=== PATIENT | male | born 1980 | race Caucasian/White ===

== ENCOUNTER 2021-01-20 20:17 | Emergency (ER) | payer OTHER, SELFPAY ==
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
--- NOTE | 2021-01-20 20:27 | ECG_ITS ---
Measurements Intervals [place] Rate: 85 P: 50 MD: 193 QRS: 23 QRSD: 110 T: 38 QT: 350 QTc: 416 Interpretive Statements SINUS RHYTHM DELAYED PRECORDIAL R/S TRANSITION CONSIDER INFERIOR INFARCT, AGE INDETERMINATE BASELINE ARTIFACT- II, AVR, AVL, AVF ABNORMAL ECG Electronically Signed On 01-20-2021 21:41:52 CDT by Raj Richards D.O.
[2021-01-20 20:30] VITALS: BP 168/94; PULSE 85; RESP 22; TEMP 36.8; O2SAT 100
[2021-01-20] MEDS: DEXTROSE 50% 25 GM/50 ML SYRINGE IV PUSH (20:32)
[2021-01-20] MEDS: SODIUM CHLORIDE 0.9% IV 1,000 ML 150 ML IV CONT (20:35)
[2021-01-20] MEDS: MORPHINE SULFATE (*CRX) 4 MG/ML INJ IV PUSH ×2 (20:36→21:52)
[2021-01-20 20:43] LABS: Glucose Point of Care 40 mg/dl (65-105)
[2021-01-20 20:48] LABS: Basophils Absolute Auto 0.1 K/mm3 (0.0-0.1); Basophils Percent Auto 0.7 % (0.2-1.2); Eosinophils Absolute Auto 0.4 K/mm3 (0-0.3); Hematocrit 38.7 % (42.0-52.0); Hemoglobin 12.5 g/dL (14.0-18.0); Immature Granulocyte Absolute 0.14 K/mm3 (0.00-0.031); Lymphocytes Absolute Auto 1.61 K/mm3 (0.9-3.2); Lymphocytes Percent Auto 11.2 % (18.3-44.2); Mean Corpuscular HGB Conc 32.3 g/dl (32-36); Mean Corpuscular Hemoglobin 28.2 pg (26-34); Mean Corpuscular Volume 87.2 fl (80-100); Mean Platelet Volume 9.1 fl (7.4-10.4); Monocytes Absolute Auto 1.1 K/mm3 (0.1-0.6); Monocytes Percent Auto 7.4 % (2.6-8.5); Neutrophils Percent Auto 76.7 % (45.5-73.1); Platelet Count Result 320 k/mm3 (150-375); Red Blood Count 4.44 M/mm3 (4.6-6.20); Red Cell Distribution Width 13.4 % (11.5-14.5); White Blood Count 14.4 K/mm3 (4.5-10.0)
[2021-01-20 21:05] VITALS: BP 168/94; PULSE 86; RESP 19; O2SAT 100
[2021-01-20 21:05] LABS: Alanine Aminotransferase 24 U/L (4-50); Alkaline Phosphatase 89 U/L (38-126); Anion Gap 10 mmol/L (8-16); Aspartate Amino Transferase 29 U/L (17-59); Bilirubin,Total 0.3 mg/dL (0.2-1.3); Blood Urea Nitrogen 39 mg/dL (9-20); Carbon Dioxide 24 mmol/L (22-30); Chloride 106 mmol/L (98-107); Estimated Glomerular Filt Rate 26; Glucose 47 mg/dL (75-110); Potassium 4.5 mmol/L (3.4-5.0); Sodium 140 mmol/L (137-145)
[2021-01-20 21:13] LABS: Glucose Point of Care 97 mg/dl (65-105)
[2021-01-20 21:31] VITALS: BP 166/95; PULSE 94; RESP 25; O2SAT 99
[2021-01-20 21:51] LABS: Glucose Point of Care 99 mg/dl (65-105)
[2021-01-20 21:55] VITALS: BP 168/95; PULSE 89; RESP 19; O2SAT 99
[2021-01-20 22:17] LABS: Add Urine Microscopic? YES; Appearance Urine Clear (Clear); Bilirubin Urine Negative (Negative); Blood Urine Negative (Negative); Color Urine Straw (Yellow); Glucose Urine UA Negative (Negative); Ketones Urine Negative (Negative); Leukocyte Esterase Ur Negative LEU/UL (Negative); Nitrate Urine Negative (Negative); Protein Urine 3+ mg/dL (Negative); RBC Urine 0-2 /hpf (0-2); Specific Grav Ur 1.008 (1.001-1.035); Urobilinogen Urine Negative mg/dL (<2.0); WBC Urine 0-3 /hpf
--- NOTE | 2021-01-20 23:32 | PC.NURSE ---
Assumed care of pt. at this time. Report from LISA Garcia
[2021-01-20] MEDS: HYDROmorphone HCL INJ (*CRX) 1 MG/ML SYR IV PUSH (23:33)
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
--- NOTE | 2021-01-20 23:56 | PC.NURSE ---
Blood Glu 113 at 23:57
[2021-01-20 23:58] VITALS: BP 180/90; PULSE 87; RESP 18; O2SAT 100
[2021-01-20 23:58] LABS: Glucose Point of Care 113 mg/dl (65-105)
[2021-01-21 00:10] VITALS: BP 153/88; PULSE 77; RESP 19; O2SAT 97
== END 2021-01-21 00:10 | disposition home or self-care (01) ==
PROVIDERS: Emergency Provider Family Medicine
DX: E11.649 Type 2 diabetes mellitus with hypoglycemia without coma (principal); M54.5 Low back pain; V47.5XXA Car driver injured in collision with fixed or stationary object in traffic accident, initial encounter
CPT/HCPCS: 36415; 70450; 71045; 74176; 80053; 81001; 82948; 85025; 93005; 96361; 96374; 96375; 96376; 99284; J1170; J2270; J7030

== ENCOUNTER 2021-11-05 04:04 | Emergency (ER) | payer OTHER, SELFPAY ==
[2021-11-05 04:18] LABS: Glucose Point of Care 194 mg/dl (65-105)
[2021-11-05 04:20] VITALS: BP 194/97; PULSE 89; RESP 18; TEMP 36.6; O2SAT 100
--- NOTE | 2021-11-05 04:30 | ED.GENADULT ---
HPI - General Adult General Chief complaint: Unspecified Stated complaint: Hypoglycemia Time Seen by Provider: 11/05/21 04:08 Source: patient, family, EMS, RN notes reviewed and old records reviewed Mode of arrival: EMS Limitations: no limitations History of Present Illness Onset (ago): hour(s) (2) Severity: mild Pain Consistency: other (pain-free) Relieving factors: medication Exacerbating factors: none Associated symptoms: denies other symptoms and other (pt was adamant in denying chest pain or SOB.) Treatments prior to arrival: other (see EMS records.) Related Data Home Medications Medication Instructions Recorded Confirmed glucagon [Baqsimi] 3 mg INTRANASAL USEASDIRECTD 11/05/21 11/05/21 insulin degludec [Tresiba 200 unit SUBCUT USEASDIRECTD 11/05/21 11/05/21 FlexTouch U-200] insulin lispro [Humalog KwikPen 200 unit SUBCUT USEASDIRECTD 11/05/21 11/05/21 Insulin] levothyroxine 125 mcg PO DAILY 11/05/21 11/05/21 liothyronine 5 mcg PO DAILY 11/05/21 11/05/21 lisinopril 40 mg PO DAILY 11/05/21 11/05/21 rosuvastatin 20 mg PO DAILY 11/05/21 11/05/21 Allergies Allergy/AdvReac Type Severity Reaction Status Date / Time No Known Allergies Allergy Verified 11/05/21 04:23 Review of Systems Review of Systems: All systems reviewed & are unremarkable except as noted in HPI and below PMFSH Past Medical History Medical History (Updated 11/05/21 @ 05:03 by Xochitl Albert MD) Hypoglycemia associated with diabetes Family History Family History Mother Patient's mother is in good health Father Patient's father is in good health Sibling Patient's sister is in good health Other Diabetes mellitus Family history of attention deficit hyperactivity disorder (ADHD) Family history of malignant neoplasm of thyroid Family history of thyroid disease Hypertension Social History Social History Smoking status: Never smoker Exam Const: General: cooperative, healthy appearing, no acute distress and well developed Nutritional Appearance: obese Orientation/consciousness: patient oriented x3 Limitations: no limitations HENMT: Head: normal to inspection, normocephalic and atraumatic Ears: hearing grossly normal bilaterally, external ears normal and EAC's normal General nose exam: Normal external nose present and Normal nares present Face and sinus: normal facial exam Mouth: Yes oropharynx normal and Yes moist mucous membranes Throat: posterior oropharynx normal Eyes: General: appearance normal, both eyes and all related structures Visual Bauman: normal visual bauman by confrontation Periorbital: periorbital findings normal Eyelids: eyelids normal Conjunctivae: conjunctivae normal Sclera: sclerae normal Cornea: corneas normal Pupils: Equal, round and reactive pupils present EOM: EOMs intact bilaterally Neck: Neck: normal visual inspection, full ROM, no lymphadenopathy and no meningeal signs Chest: Chest palpation & inspection: normal inspection of the chest Resp: Effort & Inspection: normal respiratory effort and able to speak in complete sentences Auscultation: clear to auscultation bilaterally Cardio: Jugular venous distension: no JVD Rate: regular rate Rhythm: regular rhythm Peripheral pulses: Peripheral pulses 2+ throughout GI: Inspection: normal to inspection GI Palp: No abdominal tenderness Auscultation: normal bowel sounds Back/Spine/Pelvis: Back: no CVA tenderness Thoracic/Lumbar Spine: thoracic and lumbar spine normal to inspection and thoraco-lumbar ROM normal Skin: General skin exam: normal color and no rashes or lesions noted Rashes: no rashes Neuro: General: patient oriented x3, gait normal, tone normal, moves all extremities, no meningeal signs, no focal motor deficits and CN's II-XI intact bilaterally Cranial nerves: Yes CN's II-XII intact bilaterally, Yes Facial sensation i
[2021-11-05 04:53] LABS: Basophils Absolute Auto 0.07 K/mm3 (0.00-0.10); Basophils Percent Auto 0.4 % (0.0-1.0); Eosinophils Percent Auto 1.8 % (1.0-6.0); Hematocrit 37.3 % (40.0-54.0); Hemoglobin 11.9 g/dL (14.0-18.0); Immature Granulocyte Absolute 0.11 K/mm3 (0.00-0.00); Immature Granulocyte Percent A 0.7 % (0.0-0.0); Lymphocytes Absolute Auto 0.98 K/mm3 (1.10-4.50); Mean Corpuscular HGB Conc 31.9 g/dL (32.0-36.0); Mean Corpuscular Hemoglobin 28.4 pg (27.0-31.0); Mean Platelet Volume 8.9 fl (8.7-11.0); Monocytes Absolute Auto 0.94 K/mm3 (0.10-0.90); Monocytes Percent Auto 5.8 % (2.0-11.0); Neutrophils Absolute Auto 13.9 K/mm3 (1.7-7.2); Neutrophils Percent Auto 85.3 % (50.0-70.0); Platelet Count Result 297 K/mm3 (150-420); Red Blood Count 4.19 M/mm3 (4.70-6.10); Red Cell Distribution Width 13.1 % (11.6-14.4); White Blood Count 16.3 K/mm3 (4.8-10.8)
[2021-11-05 05:08] LABS: Alanine Aminotransferase 23 U/L (16-63); Albumin Level 3.4 g/dL (3.4-5.0); Alkaline Phosphatase 86 U/L (46-116); Anion Gap 8 mmol/L (8-16); Aspartate Amino Transferase 13 U/L (15-37); Bilirubin,Total 0.3 mg/dL (0.00-1.00); Blood Urea Nitrogen 44 mg/dL (7-18); Calcium 8.6 mg/dL (8.5-10.1); Carbon Dioxide 26 mmol/L (21-32); Chloride 104 mmol/L (98-108); Estimated Glomerular Filt Rate 27; Glucose 265 mg/dL (70-99); Osmolality Calculated 306 mOsm/kg (285-295); Potassium 4.7 mmol/L (3.5-5.1); Sodium 138 mmol/L (136-145); Total Protein 7.2 g/dL (6.4-8.2)
== END 2021-11-05 05:09 | disposition home or self-care (01) ==
PROVIDERS: Emergency Provider Emergency Medicine
DX: E11.649 Type 2 diabetes mellitus with hypoglycemia without coma (principal)
CPT/HCPCS: 36415; 80053; 82948; 85025; 99283

== ENCOUNTER 2022-03-07 13:54 | Outpatient (CLI) | payer OTHER, SELFPAY ==
[2022-03-07 14:55] LABS: Anion Gap 10 mmol/L (8-16); Blood Urea Nitrogen 65 mg/dL (7-18); Calcium 8.8 mg/dL (8.5-10.1); Carbon Dioxide 24 mmol/L (21-32); Chloride 103 mmol/L (98-108); Estimated Glomerular Filt Rate 21; Osmolality Calculated 299 mOsm/kg (285-295); Potassium 5.5 mmol/L (3.5-5.1); Sodium 137 mmol/L (136-145)
[2022-03-07 15:01] LABS: Glucose 49 mg/dL (70-99)
== END 2022-03-07 13:55 | disposition home or self-care (01) ==
LOC: CHSLAB 14:01
PROVIDERS: PCP Physician Assistant; Visit Provider Family Medicine
DX: E87.5 Hyperkalemia (principal)
CPT/HCPCS: 36415; 80048

== ENCOUNTER 2022-03-10 11:19 | Outpatient (CLI) | payer OTHER, SELFPAY ==
[2022-03-10 12:02] LABS: Anion Gap 10 mmol/L (8-16); Blood Urea Nitrogen 62 mg/dL (7-18); Calcium 8.8 mg/dL (8.5-10.1); Carbon Dioxide 23 mmol/L (21-32); Chloride 105 mmol/L (98-108); Estimated Glomerular Filt Rate 23; Glucose 91 mg/dL (70-99); Osmolality Calculated 303 mOsm/kg (285-295); Potassium 5.8 mmol/L (3.5-5.1); Sodium 138 mmol/L (136-145)
== END 2022-03-10 11:20 | disposition home or self-care (01) ==
LOC: CHSLAB 11:25
PROVIDERS: PCP Physician Assistant; Visit Provider Physician Assistant
DX: E87.5 Hyperkalemia (principal)
CPT/HCPCS: 36415; 80048

== ENCOUNTER 2022-03-15 12:05 | Outpatient (CLI) | payer OTHER, SELFPAY ==
[2022-03-15 12:36] LABS: Anion Gap 9 mmol/L (8-16); Blood Urea Nitrogen 54 mg/dL (7-18); Calcium 8.8 mg/dL (8.5-10.1); Carbon Dioxide 24 mmol/L (21-32); Chloride 103 mmol/L (98-108); Estimated Glomerular Filt Rate 26; Glucose 109 mg/dL (70-99); Osmolality Calculated 297 mOsm/kg (285-295); Potassium 5.5 mmol/L (3.5-5.1); Sodium 136 mmol/L (136-145)
== END 2022-03-15 12:06 | disposition home or self-care (01) ==
LOC: CHSLAB 12:08
PROVIDERS: PCP Physician Assistant; Visit Provider Family Medicine
DX: E87.5 Hyperkalemia (principal)
CPT/HCPCS: 36415; 80048

== ENCOUNTER 2022-04-07 12:54 | Outpatient (CLI) | payer OTHER, SELFPAY ==
[2022-04-07 13:43] LABS: Albumin Level 3.6 g/dL (3.4-5.0); Anion Gap 10 mmol/L (8-16); Blood Urea Nitrogen 40 mg/dL (7-18); Calcium 9.2 mg/dL (8.5-10.1); Carbon Dioxide 25 mmol/L (21-32); Chloride 104 mmol/L (98-108); Estimated Glomerular Filt Rate 26; Free T3 2.43 pg/mL (2.18-3.98); Free T4 Free Thyroxine 1.06 ng/dL (0.76-1.46); Glucose 83 mg/dL (70-99); Osmolality Calculated 296 mOsm/kg (285-295); Phosphorus 4.3 mg/dL (2.6-4.7); Sodium 139 mmol/L (136-145); Thyroid Stimulating Hormone 2.38 uIU/mL (0.36-3.74)
== END 2022-04-07 12:55 | disposition home or self-care (01) ==
LOC: CHSLAB 12:56
PROVIDERS: Internal Medicine Nephrology; PCP Physician Assistant; Visit Provider Nurse Practitioner
DX: E03.9 Hypothyroidism, unspecified (principal); N18.4 Chronic kidney disease, stage 4 (severe)
CPT/HCPCS: 36415; 80069; 84439; 84443; 84481

== ENCOUNTER 2022-09-02 13:15 | Outpatient (CLI) | payer BC, SELFPAY ==
[2022-09-02 13:49] LABS: Creatinine Urine 52.71 mg/dL (40-278)
[2022-09-02 13:51] LABS: MALB Creatinine Ratio 758.8 mg/g (0-30); Microalbumin Urine Random > 400.0 mg/L
[2022-09-02 14:23] LABS: Alanine Aminotransferase 24 U/L (16-63); Albumin Level 3.1 g/dL (3.4-5.0); Alkaline Phosphatase 102 U/L (46-116); Anion Gap 6 mmol/L (8-16); Aspartate Amino Transferase 17 U/L (15-37); Bilirubin,Total 0.3 mg/dL (0.00-1.00); Blood Urea Nitrogen 38 mg/dL (7-18); Calcium 8.5 mg/dL (8.5-10.1); Carbon Dioxide 30 mmol/L (21-32); Chloride 106 mmol/L (98-108); Cholesterol 169 mg/dL (0-200); Estimated Glomerular Filt Rate 24; Free T3 2.44 pg/mL (2.18-3.98); Free T4 Free Thyroxine 1.02 ng/dL (0.76-1.46); Glucose 113 mg/dL (70-99); HDL Direct 41 mg/dL (40-60); LDL Cholesterol Calculated 92 mg/dL (<130); Osmolality Calculated 304 mOsm/kg (285-295); Potassium 5.1 mmol/L (3.5-5.1); Sodium 142 mmol/L (136-145); Thyroid Stimulating Hormone 2.61 uIU/mL (0.36-3.74); Total Protein 6.5 g/dL (6.4-8.2); Triglycerides 178 mg/dL (0-150)
== END 2022-09-02 13:16 | disposition home or self-care (01) ==
LOC: CHSLAB 13:18
PROVIDERS: PCP Internal Medicine Endocrinology, Diabetes & Metabolism; Visit Provider Internal Medicine Endocrinology, Diabetes & Metabolism
DX: E10.9 Type 1 diabetes mellitus without complications (principal); E03.9 Hypothyroidism, unspecified; E78.5 Hyperlipidemia, unspecified
CPT/HCPCS: 36415; 80053; 80061; 82043; 83036; 84439; 84443; 84481

== ENCOUNTER 2022-10-10 19:18 | Emergency (ER) | payer BC, SELFPAY ==
[2022-10-10 19:20] VITALS: BP 172/81; PULSE 84; RESP 20; TEMP 37.2; O2SAT 99
[2022-10-10] MEDS: DEXTROSE 50% 25 GM/50 ML SYRINGE IV PUSH (19:22)
--- NOTE | 2022-10-10 19:38 | ED.GENADULT ---
HPI - General Adult General Chief complaint: Unspecified Stated complaint: Low Blood Sugar Time Seen by Provider: 10/10/22 19:37 Source: patient Mode of arrival: ambulatory Limitations: no limitations History of Present Illness HPI narrative: 42-year-old male with a history of diabetes mellitus, dyslipidemia, hypothyroidism, hypertension, CARLOS MANUEL, CKD stage 4 with secondary hyperparathyroidism was noted to have -- Dizziness and lightheadedness.Blood sugar in the 40s On his continuous blood glucose monitoring machine. The patient takes Tresiba and lists pro with meals. -- The patient called EMS following which he received 75 mL of D10 with increase of blood sugar 90. When he presented to the ER he noted his blood sugar to be in the 70s. No loss of consciousness. the patient was scheduled to have dinner but was unable to do so . Onset (ago): hour(s) ( 1 hour ago) Severity: mild Exacerbating factors: none Associated symptoms: weakness Related Data Home Medications Medication Instructions Recorded Confirmed insulin degludec 200 unit/mL (3 24 unit subcut USEASDIRECTD 11/05/21 10/10/22 mL) subcutaneous pen (Tresiba FlexTouch U-200 insulin) insulin lispro 200 unit/mL (3 mL) 200 unit subcut USEASDIRECTD 11/05/21 10/10/22 subcutaneous pen (Humalog KwikPen U-200 Insulin) levothyroxine 150 mcg tablet 150 mcg PO DAILY 09/27/22 10/10/22 (Unithroid) diltiazem HCl 180 mg 180 mg PO BID 10/10/22 10/10/22 capsule,extended release 24 hr Allergies Allergy/AdvReac Type Severity Reaction Status Date / Time No Known Allergies Allergy Verified 09/27/22 15:16 Review of Systems Review of Systems: All systems reviewed & are unremarkable except as noted in HPI and below Constitutional: Constitutional: Reports as per HPI, Reports no additional constitutional complaints and Reports weakness Eyes: Eyes: Reports as per HPI and Reports no additional eye complaints ENT: Reports system reviewed and no additional complaints, except as documented and Reports as per HPI Cardiovascular: Cardiovascular: Reports as per HPI and Reports no additional cardiovascular complaints Respiratory: Respiratory: Reports as per HPI and Reports no additional respiratory complaints Gastrointestinal: Gastrointestinal: Reports as per HPI and Reports no additional gastrointestinal complaints Genitourinary: Genitourinary: Reports no additional male genitourinary complaints and Reports as per HPI Musculoskeletal: Musculoskeletal: Reports no additional musculoskeletal complaints and Reports as per HPI Integumentary/Breasts: Skin/Breast: Reports system reviewed and no additional complaints, except as docu and Reports as per HPI Neurologic: Reports system reviewed and no additional complaints, except as documented and Reports as per HPI Psychiatric: Psychiatric: Reports no additional psychiatric complaints and Reports as per HPI Endocrine: Endocrine: Reports palpitations Hematologic/Lymphatic: Hematologic/Lymphatic: Reports no additional hematologic/lymphatic complaints and Reports as per HPI Allergic/Immunologic: Allergic/Immunologic: Reports no additional allergic/immunologic complaints and Reports as per HPI PMFSH Past Medical History Medical History CKD (chronic kidney disease) Diabetes Diabetic retinopathy Dysthymic disorder Hyperlipidemia Hypertension Hypoglycemia associated with diabetes Hypothyroidism CARLOS MANUEL (obstructive sleep apnea) Family History Family History Mother Patient's mother is in good health Father Patient's father is in good health Sibling Patient's sister is in good health Other Diabetes mellitus Family history of attention deficit hyperactivity disorder (ADHD) Family history of malignant neoplasm of thyroid Family history of thyroid disease Hypertension Social History Social History (Revie
--- NOTE | 2022-10-10 19:44 | PC.NURSE ---
Pt sitting bedside, food tray given. Pt watching TV, call walker at side.
[2022-10-10 20:12] LABS: Basophils Absolute Auto 0.07 K/mm3 (0.00-0.10); Basophils Percent Auto 0.6 % (0.0-1.0); Eosinophils Percent Auto 2.8 % (1.0-6.0); Hemoglobin 12.9 g/dL (14.0-18.0); Immature Granulocyte Absolute 0.06 K/mm3 (0.00-0.00); Immature Granulocyte Percent A 0.6 % (0.0-0.0); Lymphocytes Absolute Auto 1.25 K/mm3 (1.10-4.50); Lymphocytes Percent Auto 11.6 % (18.0-42.0); Mean Corpuscular HGB Conc 33.1 g/dL (32.0-36.0); Mean Corpuscular Volume 84.8 fL (78.0-102.0); Monocytes Absolute Auto 0.81 K/mm3 (0.10-0.90); Monocytes Percent Auto 7.5 % (2.0-11.0); Neutrophils Absolute Auto 8.3 K/mm3 (1.7-7.2); Neutrophils Percent Auto 76.9 % (50.0-70.0); Platelet Count Result 292 K/mm3 (150-420); Red Cell Distribution Width 13.2 % (11.6-14.4); White Blood Count 10.8 K/mm3 (4.8-10.8)
[2022-10-10 20:23] LABS: Glucose Point of Care 155 mg/dl (65-105)
[2022-10-10 20:29] LABS: Alanine Aminotransferase 10 U/L (16-63); Albumin Level 3.1 g/dL (3.4-5.0); Alkaline Phosphatase 90 U/L (46-116); Anion Gap 8 mmol/L (8-16); Aspartate Amino Transferase 17 U/L (15-37); Bilirubin,Total 0.2 mg/dL (0.00-1.00); Blood Urea Nitrogen 48 mg/dL (7-18); Calcium 8.5 mg/dL (8.5-10.1); Carbon Dioxide 27 mmol/L (21-32); Chloride 104 mmol/L (98-108); Estimated CRCL calculation 49 ml/min; Estimated Glomerular Filt Rate 23; Glucose 149 mg/dL (70-99); Osmolality Calculated 303 mOsm/kg (285-295); Potassium 4.5 mmol/L (3.5-5.1); Sodium 139 mmol/L (136-145); Troponin I 5.4 ng/L (0.00-60.4)
--- NOTE | 2022-10-10 21:20 | PC.NURSE ---
Pt ate 100% of dsinner given, dexcom readings are 190, feeling better, VSS.
[2022-10-10 21:27] VITALS: BP 168/76; RESP 18; O2SAT 98
[2022-10-10 21:35] VITALS: BP 165/81; PULSE 89; RESP 20; TEMP 36.6; O2SAT 100
== END 2022-10-10 21:41 | disposition home or self-care (01) ==
PROVIDERS: Emergency Provider Internal Medicine Critical Care Medicine; PCP Physician Assistant
DX: I12.9 Hypertensive chronic kidney disease with stage 1 through stage 4 chronic kidney disease, or unspecified chronic kidney disease (principal); N18.4 Chronic kidney disease, stage 4 (severe); E11.649 Type 2 diabetes mellitus with hypoglycemia without coma; E11.22 Type 2 diabetes mellitus with diabetic chronic kidney disease; E03.9 Hypothyroidism, unspecified; E78.5 Hyperlipidemia, unspecified; Z79.4 Long term (current) use of insulin
CPT/HCPCS: 36415; 80053; 82948; 84484; 85025; 96374; 99283; 99284

== ENCOUNTER 2023-01-23 15:49 | Outpatient (CLI) | payer BC, SELFPAY ==
[2023-01-23 16:31] LABS: Creatinine Urine 78.24 mg/dL (40-278)
[2023-01-23 16:33] LABS: Total Protein Urine Random > 250.0 mg/dL (0.0-11.9)
[2023-01-23 16:37] LABS: Albumin Level 3.2 g/dL (3.4-5.0); Anion Gap 11 mmol/L (8-16); Blood Urea Nitrogen 43 mg/dL (7-18); Calcium 8.6 mg/dL (8.5-10.1); Carbon Dioxide 25 mmol/L (21-32); Chloride 103 mmol/L (98-108); Estimated Glomerular Filt Rate 20; Glucose 155 mg/dL (70-99); Osmolality Calculated 301 mOsm/kg (285-295); Phosphorus 4.6 mg/dL (2.6-4.7); Potassium 4.9 mmol/L (3.5-5.1); Sodium 139 mmol/L (136-145)
[2023-01-25 19:16] LABS: Parathyroid Intact 314 pg/mL (14-64)
[2023-01-25 21:33] LABS: Vitamin D 25 Hydroxy 13 ng/mL (30-100)
== END 2023-01-23 15:50 | disposition home or self-care (01) ==
LOC: CHSLAB 15:51
PROVIDERS: PCP Physician Assistant; Visit Provider Internal Medicine Nephrology
DX: E11.22 Type 2 diabetes mellitus with diabetic chronic kidney disease (principal); E55.9 Vitamin D deficiency, unspecified; I12.9 Hypertensive chronic kidney disease with stage 1 through stage 4 chronic kidney disease, or unspecified chronic kidney disease; N25.81 Secondary hyperparathyroidism of renal origin; R80.9 Proteinuria, unspecified; N18.4 Chronic kidney disease, stage 4 (severe)
CPT/HCPCS: 36415; 80069; 82306; 82570; 83970; 84156

== ENCOUNTER 2024-02-09 12:27 | Outpatient (CLI) | payer BC, SELFPAY ==
[2024-02-09 12:57] LABS: Creatinine Urine 41.52 mg/dL (40-278)
[2024-02-09 13:13] LABS: Total Protein Urine Random > 250.0 mg/dL (0.0-11.9); Ur Ttl Prot Creatinine Ratio 6.02 mg/mg (0-0.20)
[2024-02-09 13:31] LABS: Albumin Level 3.3 g/dL (3.4-5.0); Anion Gap 13 mmol/L (4-12); Blood Urea Nitrogen 72 mg/dL (7-18); Calcium 8.2 mg/dL (8.5-10.1); Carbon Dioxide 23 mmol/L (21-32); Chloride 100 mmol/L (98-108); Estimated Glomerular Filt Rate 11; Glucose 126 mg/dL (70-99); Osmolality Calculated 305 mOsm/kg (285-295); Phosphorus 5.6 mg/dL (2.6-4.7); Potassium 4.6 mmol/L (3.5-5.1); Sodium 136 mmol/L (136-145)
[2024-02-10 13:09] LABS: Parathyroid Intact 539 pg/mL (16-77)
== END 2024-02-09 12:28 | disposition home or self-care (01) ==
LOC: CHSLAB 12:29
PROVIDERS: PCP Physician Assistant; Visit Provider Internal Medicine Nephrology
DX: E11.22 Type 2 diabetes mellitus with diabetic chronic kidney disease (principal); I12.9 Hypertensive chronic kidney disease with stage 1 through stage 4 chronic kidney disease, or unspecified chronic kidney disease; N18.4 Chronic kidney disease, stage 4 (severe); N25.81 Secondary hyperparathyroidism of renal origin; R25.2 Cramp and spasm; R80.9 Proteinuria, unspecified
CPT/HCPCS: 36415; 80069; 82570; 83735; 83970; 84156

== ENCOUNTER 2024-07-05 15:03 | Outpatient (CLI) | payer BC, SELFPAY ==
[2024-07-05 15:32] LABS: Creatinine Urine 62.36 mg/dL (40-278)
[2024-07-05 15:36] LABS: Total Protein Urine Random > 250.0 mg/dL (0.0-11.9); Ur Ttl Prot Creatinine Ratio 4.01 mg/mg (0-0.20)
[2024-07-05 15:57] LABS: Albumin Level 3.2 g/dL (3.4-5.0); Anion Gap 16 mmol/L (4-12); Blood Urea Nitrogen 99 mg/dL (7-18); Calcium 6.6 mg/dL (8.5-10.1); Carbon Dioxide 21 mmol/L (21-32); Chloride 101 mmol/L (98-108); Estimated Glomerular Filt Rate 7; Glucose 134 mg/dL (70-99); Osmolality Calculated 318 mOsm/kg (285-295); Potassium 4.7 mmol/L (3.5-5.1); Sodium 138 mmol/L (136-145)
[2024-07-06 13:47] LABS: Parathyroid Intact 892 pg/mL (16-77)
== END 2024-07-05 15:04 | disposition home or self-care (01) ==
PROVIDERS: PCP Physician Assistant; Visit Provider Internal Medicine Nephrology
DX: E11.22 Type 2 diabetes mellitus with diabetic chronic kidney disease (principal); I12.9 Hypertensive chronic kidney disease with stage 1 through stage 4 chronic kidney disease, or unspecified chronic kidney disease; N18.5 Chronic kidney disease, stage 5; R80.9 Proteinuria, unspecified; N18.4 Chronic kidney disease, stage 4 (severe); N25.81 Secondary hyperparathyroidism of renal origin; E55.9 Vitamin D deficiency, unspecified
CPT/HCPCS: 36415; 80069; 82306; 82570; 83970; 84156

== ENCOUNTER 2024-08-07 14:33 | Outpatient (CLI) | payer OTHER, SELFPAY ==
[2024-08-08 07:53] LABS: Hepatitis B Surface Antibody NON-REACTIVE (NON-REACTIVE)
[2024-08-09 03:09] LABS: Hepatitis B Core Ab Total NON-REACTIVE (NON-REACTIVE)
[2024-08-10 13:49] LABS: NIL 0.01 IU/mL; Quantiferon TB Plus, 1T NEGATIVE (NEGATIVE); TB1-NIL 0.02 IU/mL; TB2-NIL 0.01 IU/mL
== END 2024-08-07 14:34 | disposition home or self-care (01) ==
LOC: CHSLAB 14:34
PROVIDERS: PCP Physician Assistant; Visit Provider Internal Medicine Nephrology
DX: R06.00 Dyspnea, unspecified (principal); N18.6 End stage renal disease; R79.89 Other specified abnormal findings of blood chemistry; R11.2 Nausea with vomiting, unspecified; R10.11 Right upper quadrant pain; R74.8 Abnormal levels of other serum enzymes; R17 Unspecified jaundice; R05.9 Cough, unspecified; R06.02 Shortness of breath; Z11.1 Encounter for screening for respiratory tuberculosis
CPT/HCPCS: 36415; 86480; 86704; 86706; 87340

== ENCOUNTER 2025-01-08 14:52 | Outpatient (CLI) | payer OTHER, SELFPAY ==
--- NOTE | ~2025-01-08 | XR_ITS ---
XR abdomen/kub 1V 01/08/2025 15:08 Indication: Abdominal pain. Procedure: KUB Comparison: No prior studies for comparison. Findings: Bowel gas pattern nonobstructive. There is a catheter overlying the left pelvis which is on ly partially visualized, possibly fractured. No abnormal calcifications. Impression: 1: No acute abdominal abnormality. 2: Partially visualized catheter left pelvis, possibly fractured. Reviewed, dictated and finalized at location [] Impression: 1: No acute abdominal abnormality. 2: Partially visualized catheter left pelvis, possibly fractured.
--- OUTSIDE RECORDS SUMMARY | 2025-01-08 17:26 | XMS_ITS | Referral Summary ---
Author Organization [facility] Address [address] [place] [address] Care Team Providers Care Merry Go Round Operator Name Role Phone Julius Harper MD Primary Care Provider [phone] Grace Delgado MD Unavailable [phone] Allergies No known active allergies Medications glucagon (glucagon) 1 mg kit Take as directed 2 kit 3 7 Active terazosin (HYTRIN) 2 mg capsule Take 2 mg by mouth daily. 4 7 Active DILTIAZEM CD 240 mg 24 hr capsule Take 240 mg by mouth 2 (two) times a day. 4 7 Active furosemide (LASIX) 20 mg tablet Take 1 tablet by mouth daily. 8 Active blood-glucose sensor device Use 1 Dexcom G5 sensor device weekly 12 Device 1 8 Active alcohol swabs (ALCOHOL WIPES) pads, medicated Apply 1 each topically 4 (four) times a day 200 each 9 Active blood glucose diagnostic strip Test blood suagrs four times every day 150 each 9 Active lancets misc Test blood sugars four times every day 200 each 9 Active levothyroxine (SYNTHROID, LEVOTHROID) 125 mcg tabletIndications: Hypothyroidism, unspecified type Take 1 tablet (125 mcg total) by mouth daily 90 tablet 1 9 Active lisinopril (PRINIVIL,ZESTRIL) 40 mg tablet Take 1 tablet (40 mg total) by mouth daily 90 tablet 1 9 Active pen needle, diabetic (PEN NEEDLE) 31 gauge x 5/16 needle Use to inject 4 times daily as directed 400 each 3 9 Active liothyronine (Cytomel) 5 mcg tablet Take 1 tablet (5 mcg total) by mouth 2 (two) times a day 60 tablet 11 0 Active rosuvastatin (CRESTOR) 20 mg tablet Take 1 tablet (20 mg total) by mouth daily 30 tablet 11 0 Active HumaLOG KwikPen Insulin 100 unit/mL insulin penIndications:Typ e 1 diabetes mellitus with hyperglycemia (HCC) Inject 15-30 Units under the skin 3 (three) times a day before meals Max 90 units per day 30 pen 1 0 Active Basaglar KwikPen U-100 Insulin 100 unit/mL (3 mL) insulin pen Inject 32 Units under the skin daily 30 mL 0 Active Active Problems Problem Noted Date Diagnosed Date CKD (chronic kidney disease) stage 3, GFR 30-59 ml/min 09/18/2019 BMI 40.0-44.9, adult 09/17/2019 Mixed diabetic hyperlipidemi a associated with type 1 diabetes mellitus 03/26/2019 Assessment & Plan (09/17/2019 12:59 PM DIRECTOR PROFESSIONAL SERVICES): Due to the high risk of of heart attacks and strokes in patients with diabetes, it is stronglyce recommended to aim for LDL-cholesterol ( bad cholesterol ) of less than 100 ( or less than 70 if you have a history of stroke or heart disease ) and a non HDL cholesterol of less than 130 . Since statin medications have shown to decrease the risk of heart disease and strokes in patients with diabetes , its use is strongly recommended. Assessment & Plan (03/26/2019 4:10 PM CDT): Goal of treatment , LDL cholesterol less than 100 ( less than 70 in patients with history of heart attacks and / or strokes ) NonHDL cholesterol ( total cholesterol minus HDL cholesterol ) goal less than 130 ( less than 100 in patients with history of heart attacks and / or strokes ) Low cholesterol, low fat diet was discussed and advised. Daily exercise Will check lipid profile and start a statin therapy is indicated Postoperative hypothyroidism 10/04/2018 Assessment & Plan (09/17/2019 12:58 PM DIRECTOR PROFESSIONAL SERVICES): Will check TSH and free T4 Will adjust dose of Levothyroxine accordingly . If there is a need to make changes, will recheck levels in 2-3 months. Instructions to patient on taking medication properly : in the morning, on an empty stomach , 1 h part from food and/or other meds. Consider adding Cytomel Assessment & Plan (03/26/2019 4:06 PM CDT): Will check TSH and free T4 Will adjust dose of Levothyroxine accordingly . If there is a need to make changes, will recheck levels in 2-3 months. Instructions to patient on taking medication properly : in the morning, on an empty stomach , 1 h part from food and/or other meds. If any doses are missed, can take 2-3 tab together ,to make up for the missed dose; make sure at the end to the week, 7 tabs have been taken. Assessment & Plan (10/08/2018 11:05 AM CDT): Will check TFT's. Doubt that lack of wt loss is largely d/t thyroid medication. Type 1 diabetes mellitus with hyperglycemia 10/30 Assessment & Plan (09/17/2019 1:01 PM DIRECTOR PROFESSIONAL SERVICES): Your Hba1c today was: Lab Results Component Value Date HGBA1C 10.4 09/17/2019 meaning a 3 month average sugar of : 260 Your goal hba1c is under 7.0 to prevent termite exterminator diabetes complications ( eye , kidney and nerve damage ) . Your goal sugars are in the 90-130 range Exercise recommendations: It is recommended that you do daily aerobic ( walking, riding a bike, swimming ) and resistance exercises ( light weight lifting, resistance band stretching ) for at least 30 minutes , most days of the week. If you can not walk, chair exercises for 10-15 min a day would help tremendously. As little as 15-20 minutes exercise , in one or two sessions a day, is still very helpful to improve your diabetes control . Diet recommendations: Eat small portion meals, trying not to consume more than 1800 calories a day . Try to eat not more than than 2 servings of carbs ( starches ) wiith your meals. Avoid soft drinks, including regular sodas , fruit juices and sweetened tea. Drink water instead. Eat plenty of green and leafy vegetables, including salads. Medications: Take your medications regularly. Setting phone alarms can help . Keep your medication on the kitchen dinner table, by the bedside table or by the sink where they are visible to you. If you are taking insulin : the insulin that you are currently using does not need to be refrigerated. Keep it where you can see it . Monitor your sugar levels with finger sticks regularly and keep a log sheet or book. Bring your sugar meter and /or a log book or log sheet to every office visit. Take Basaglar 40 units at bedtime Take Humalog, 1.5 unit per 10 grams of carbs and 2 units per every 50 points sugar over 150 unit per every 30 sugars over 150 Start Bydureon , once a week. Will send rx for DEXCOM Assessment & Plan (03/26/2019 4:09 PM CDT): Hba1c was Lab Results Component Value Date HGBA1C 9.2 % 03/26/2019 today, indicating poor DM control 1800 calorie, consistent carb diet recommended. No more than 30-45 grams of carbs per meal recommended, as well as avoiding high concentrated sweet drinks . 25-45 min daily exercise, combining both aerobic and resistance exercise recommended. The need to monitor blood glucose before meals and bedtime was discussed. Prevention and treatment of hyypoglcyemia discussed. Insulin dose: I would like to try Tresiba insulin instead of basaglar I gave the patient samples and advising on taking 35 units at bedtime and 2 increased by 2 -3 units every few days until morning sugars are low in the mid 100s Also the importance of blood glucose monitoring was discussed. He will try to see if he can get the DEXCOM was again. The implant of a Eversend sensor also was explained and offered Assessment & Plan (10/08/2018 11:04 AM CDT): A1c 9.6. Increase Basaglar to 32 units. Use 1 unit per 10 grams carbs. Sliding scale before meals.175 to 220 add 1 unit Then 1 unit per 30 points your sugar is above 220. Be very specific about taking correct amount of insulin. BG goals revewed. Assessment & Plan (03/01/2018 3:32 PM CDT): A1c 6.8 without hypoglycemia. No change to current insulin plan. May consider pump in the future but doing well on MDI now. Follow up with nephrology and ophthalmology. Assessment & Plan (11/17/2017 8:26 AM CDT): A1c 6.2 but with rare lows. Will recommend change to current plan. Advised to monitor the impact of carb foods and reduce portions to keep pc excursions within goal. Obesity, Class III, BMI 40-49.9 (morbid obesity) 08/16/2017 Assessment & Plan (10/08/2018 11:27 AM CDT): Needs to be more observant of calories plus carbs consumed daily. Assessment & Plan (03/01/2018 3:30 PM CDT): Importance of following diet and exercising discussed. Assessment & Plan (11/17/2017 8:24 AM CDT): Importance of following diet and exercising discussed. Assessment & Plan (08/16/2017 12:26 PM DIRECTOR PROFESSIONAL SERVICES): Eye exam stable. Increase exercise as tolerated. Continue to manage portions. Otitis media 04/24/2013 Overview (11/02/2016): Unspecified otitis media Hypertension 04/19/2012 Overview (11/03/2016): Hypertension, Unspecified Assessment & Plan (10/08/2018 11:27 AM CDT): Controlled on current medications. Assessment & Plan (03/01/2018 3:30 PM CDT): Controlled on current medications. Follow up with Dr. Moser Assessment & Plan (11/17/2017 8:24 AM CDT): Controlled on current medications. Assessment & Plan (08/16/2017 12:25 PM DIRECTOR PROFESSIONAL SERVICES): Continue follow up and management per cardiology Assessment & Plan (05/05/2017 1:56 PM CDT): Controlled on current medication plan Hyperlipidemia 04/19/2012 Overview (11/04/2016): HYPERLIPIDEMIA NEC/NOS Assessment & Plan (10/08/2018 11:28 AM CDT): Check lipid panel Assessment & Plan (03/01/2018 3:30 PM CDT): Continue atorvastatin Assessment & Plan (11/17/2017 8:24 AM CDT): Continue statin and follow up with Dr. Moser Assessment & Plan (08/16/2017 12:25 PM DIRECTOR PROFESSIONAL SERVICES): Will check lipids next OV. Assessment & Plan (05/05/2017 1:56 PM CDT): Will check labs. Osteochondritis dissecans 02/20/2012 Loose body of knee 02/20/2012 Knee pain 02/15/2012 Resolved Problems Problem Noted Date Diagnosed Date Resolved Date Nontoxic uninodular goiter 06/07/2013 0 09/17/2019 Overview (11/04/2016): NONTOX UNINODULAR GOITER Assessment & Plan (03/01/2018 3:31 PM CDT): TSH at goal on current dose of replacement hormone. Will check labs next OV Assessment & Plan (08/16/2017 1:29 PM DIRECTOR PROFESSIONAL SERVICES): Clinically euthyroid. TSH at goal on current dose of levothyroxine. Assessment & Plan (05/05/2017 1:57 PM CDT): Clinically euthyroid. Will check TSH, F T 4 Nontoxic single thyroid nodule 05/17/2012 09/17/2019 Assessment & Plan (11/17/2017 8:25 AM CDT): Continue on current dose of thyroid replacement hormone. Social History Tobacco Use Types Packs/Day Years Used Date Smoking Tobacco: Former Smokeless Tobacco: Never Alcohol Use Standard Drinks/Week Comments No 0 (1 standard drink = 0.6 oz pur e alcohol) PHQ-2 Answer Date Recorded PHQ-2 Score 0 03/26/2019 Sex and Gender Information Value Date Recorded Sex Assigned at Not on file Legal Sex Male 11:57 PM DIRECTOR PROFESSIONAL SERVICES Gender Identity Not on file Sexual Orientation Not on file Last Filed Vital Signs Vital Sign Reading Time Taken Comments Blood Pressure 90/62 09/17/2019 8:57 AM DIRECTOR PROFESSIONAL SERVICES Pulse 79 09/17/2019 8:57 AM DIRECTOR PROFESSIONAL SERVICES Temperature 36.7 C (98 F) 09/06/2016 2:37 PM DIRECTOR PROFESSIONAL SERVICES Respiratory Rate 14 09/17/2019 8:57 AM DIRECTOR PROFESSIONAL SERVICES Oxygen Saturation 97% 09/06/2016 2:37 PM DIRECTOR PROFESSIONAL SERVICES Inhaled Oxygen Concentration - - Weight 166.4 kg (366 lb 13.5 oz) 09/11/2024 9:01 AM DIRECTOR PROFESSIONAL SERVICES Height 195.6 cm (6' 5) 09/11/2024 9:01 AM DIRECTOR PROFESSIONAL SERVICES Body Mass Index 43.5 09/11/2024 9:01 AM DIRECTOR PROFESSIONAL SERVICES Plan of Treatment Not on file Procedures Procedure Name Priority Date/Time Associated Diagnosis Comments COMPREHENSIVE METABOLIC PANEL Routine 09/17/2019 10:12 AM DIRECTOR PROFESSIONAL SERVICES Type 1 diabetes mellitus with hyperglycemia (HCC) LIPID PANEL Routine 09/17/2019 10:12 AM DIRECTOR PROFESSIONAL SERVICES Type 1 diabetes mellitus with hyperglycemia (HCC) TSH Routine 09/17/2019 10:12 AM DIRECTOR PROFESSIONAL SERVICES Hypothyroidism, unspecified type POCT HEMOGLOBIN A1C Routine 09/17/2019 9 :10 AM DIRECTOR PROFESSIONAL SERVICES Type 1 diabetes mellitus with hyperglycemia (HCC) DIABETIC EYE EXAM Routine 11/11/2016 from Last 3 Months or Most Recently Relevant to Health Maintenance Results * (ABNORMAL) TSH (09/17/2019 10:12 AM DIRECTOR PROFESSIONAL SERVICES) TSH 8.390(H) 0.450 - 4.500 uIU/mL [facility] - 01 Blood specimen (specimen) 09/17/2019 10:12 AM DIRECTOR PROFESSIONAL SERVICES 09/17/2019 Narrative [facility] - 09/18/2019 8:13 AM DIRECTOR PROFESSIONAL SERVICES Performed at: - [facility] [id number] Press Offbearer: Willi Almeida PhD, Phone: [phone] Med Gaspar MD LAB BLOOD ORDERABLES Final Resul t Performing Organization Address [facility] Co de Phone Number [facility] - * (ABNORMAL) Lipid panel (09/17/2019 10:12 AM DIRECTOR PROFESSIONAL SERVICES) Cholesterol 340(H) 100 - 199 mg/dL [facility] - 01 Triglycerides 299(H) 0 - 149 mg/dL [facility] - 01 HDL Cholesterol 37(L) >39 mg/dL [facility] - 01 VLDL 60(H) 5 - 40 mg/dL [facility] - 01 LDL, calculated 243(H) 0 - 99 mg/dL [facility] - 01 LDL, comment Comment [facility] - 01 Comment: Possible Familial Hypercholesterolemia. FH should be suspected when fasting LDL cholesterol is above 189 mg/dL or non-HDL cholesterol is above 219 mg/dL. A family history of high cholesterol and heart disease in 1st degree relatives should be collected. J Clin Lipidol 2011;5:133-140 Blood specimen (specimen) 09/17/2019 10:12 AM DIRECTOR PROFESSIONAL SERVICES 09/17/2019 Narrative [facility] - 09/18/2019 8:13 AM DIRECTOR PROFESSIONAL SERVICES Performed at: - [facility] [id number] Press Offbearer: Willi Almeida PhD, Phone: [phone] us Med Gaspar MD LAB BLOOD ORDERABLES Final Resul t Performing Organization Address [facility] Co de Phone Number [facility] - * (ABNORMAL) Comprehensive metabolic panel (09/17/2019 10:12 AM DIRECTOR PROFESSIONAL SERVICES) Glucose 165(H) 65 - 99 mg/dL [facility] - 01 BUN 41(H) 6 - 20 mg/dL [facility] - 01 Creatinine, Serum 2.96(H) 0.76 - 1.27 mg/dL [facility] - 01 eGFR If NonAfricn Am 26(L) >59 mL/min/1.7 3 [facility] - 01 eGFR If Africn Am 30(L) >59 mL/min/1.7 3 [facility] - 01 BUN/creat ratio 14 9 - 20 [facility] - 01 Sodium 136 134 - 144 mmol/L [facility] - 01 Potassium, sr 4.8 3.5 - 5.2 mmol/L [facility] - 01 Chloride 98 96 - 106 mmol/L [facility] - 01 CO2 22 20 - 29 mmol/L [facility] - 01 Calcium 8.9 8.7 - 10.2 mg/dL [facility] - 01 Protein, sr 6.6 6.0 - 8.5 g/dL [facility] - 01 Albumin 3.6(L) 4.0 - 5.0 g/dL [facility] - 01 Comment:Please note refere nce interval change Globulin, Total 3.0 1.5 - 4.5 g/dL [facility] - 01 A/G Ratio 1.2 1.2 - 2.2 [facility] - 01 Bilirubin, Total 0.2 0.0 - 1.2 mg/dL [facility] - 01 Alk phos 97 39 - 117 IU/L [facility] - 01 AST 16 0 - 40 IU/L [facility] - 01 ALT 16 0 - 44 IU/L [facility] - 01 Blood specimen (specimen) 09/17/2019 10:12 AM DIRECTOR PROFESSIONAL SERVICES 09/17/2019 Narrative [facility] - 09/18/2019 8:13 AM DIRECTOR PROFESSIONAL SERVICES Performed at: - [facility] [address] [id number] Press Offbearer: Willi Almeida PhD, Phone: [phone] us Med Gaspar MD LAB BLOOD ORDERABLES Final Resul t [facility] - * POCT hemoglobin A1c (09/17/2019 9:10 AM DIRECTOR PROFESSIONAL SERVICES) Hemoglobin A1C, POC 10.4 Blood specimen (specimen) 09/17/2019 9:10 AM DIRECTOR PROFESSIONAL SERVICES Med Gaspar MD POINT OF CARE TEST ORDERABLES Fi nal Result * Diabetic Eye Exam (11/11/2016) Historical Provider HEALTH MAINTENANCE Edited Result - Final from Last 3 Months or Most Recently Relevant to Health Maintenance Insurance [employer] Care Teams Merry Go Round Operator Relationship Specialty [place] [id number] [address] PCP - General 10/28/16 Grace Delgado MD [address] [facility] [address] [place] [address] Referring Physician Nephrology 09/11/24
--- OUTSIDE RECORDS SUMMARY | 2025-01-08 17:26 | XMS_ITS | Clinical Summary ---
Author Organization [facility] Address [address] [place] [address] Care Team Providers Care Senior Software Analyst Name Role Phone Julius Harper MD Primary Care Provider [phone] Grace Delgado MD Unavailable [phone] Allergies No known active allergies Medications [...] 03/26/2019 Assessment & Plan (09/17/2019 12:59 PM HEARING DOG TRAINER): Due to the high risk of of [...] 10/04/2018 Assessment & Plan (09/17/2019 12:58 PM HEARING DOG TRAINER): Will check TSH and free T4 Will [...] 10/30 Assessment & Plan (09/17/2019 1:01 PM HEARING DOG TRAINER): Your Hba1c today was: Lab Results Component Value Date HGBA1C 10.4 09/17/2019 meaning a 3 month average sugar of : 260 Your goal hba1c is under 7.0 to prevent terminal operator diabetes complications ( eye , kidney and [...] discussed. Assessment & Plan (08/16/2017 12:26 PM HEARING DOG TRAINER): Eye exam stable. Increase exercise as tolerated. [...] medications. Assessment & Plan (08/16/2017 12:25 PM HEARING DOG TRAINER): Continue follow up and management per cardiology [...] Moser Assessment & Plan (08/16/2017 12:25 PM HEARING DOG TRAINER): Will check lipids next OV. Assessment & [...] OV Assessment & Plan (08/16/2017 1:29 PM HEARING DOG TRAINER): Clinically euthyroid. TSH at goal on current dose of levothyroxine. Assessment & Plan (05/05/2017 1:57 PM CDT): Clinically euthyroid. Will check TSH, F T 4 Nontoxic single thyroid nodule 05/17/2012 09/17/2019 Assessment & Plan (11/17/2017 8:25 AM CDT): Continue on current dose of thyroid replacement hormone. Surgical History Surgery Date Site/Laterality Comments OTHER SURGICAL HISTORY 2011 retinopathy: photocoagulation HERNIA REPAIR 2011 Hernia repair THYROIDECTOMY 2011 Thyroidectomy Medical History Medical History Date Comments Hx Other Medical eye laser Type 1 diabetes mellitus (HCC) D iabetes type 1 Hx Other Medical retinopathy Otitis media Otitis media Hx Other Medical Not Claustropho bic; Comments: GFC 06/04/2014 - Family History Medical History Relation Name Comments Thyroid cancer Mother Cancer -thyro id; Other Other No family histo ry of Diabetes mellitus; Relation Name Status Comments Mother Other Social History Tobacco Use Types Packs/Day Years Used Date Smoking Tobacco: Former Smokeless Tobacco: Never Alcohol Use Standard Drinks/Week Comments No 0 (1 standard drink = 0.6 oz pur e alcohol) PHQ-2 Answer Date Recorded PHQ-2 Score 0 03/26/2019 Sex and Gender Information Value Date Recorded Sex Assigned at Not on file Legal Sex Male 11:57 PM HEARING DOG TRAINER Gender Identity Not on file Sexual Orientation Not on file Obstetrics History Last Filed Vital Signs Vital Sign Reading Time Taken Comments Blood Pressure 90/62 09/17/2019 8:57 AM HEARING DOG TRAINER Pulse 79 09/17/2019 8:57 AM HEARING DOG TRAINER Temperature 36.7 C (98 F) 09/06/2016 2:37 PM HEARING DOG TRAINER Respiratory Rate 14 09/17/2019 8:57 AM HEARING DOG TRAINER Oxygen Saturation 97% 09/06/2016 2:37 PM HEARING DOG TRAINER Inhaled Oxygen Concentration - - Weight 166.4 kg (366 lb 13.5 oz) 09/11/2024 9:01 AM HEARING DOG TRAINER Height 195.6 cm (6' 5) 09/11/2024 9:01 AM HEARING DOG TRAINER Body Mass Index 43.5 09/11/2024 9:01 AM HEARING DOG TRAINER Plan of Treatment Health Maintenance Due Date Last Done Comments Albumin Creatinine Ratio, Urine 1981 Hepatitis C Screening 1981 DTaP/Tdap/Td Vaccine (1 - Tdap) 1992 Varicella Vaccines (1 of 2 - 13+ 2-dose series) 1994 Hepatitis B Screening 1999 Regular Well Visit/Exam 18-64 1999 Pneumococcal vaccine <65 (1 of 2 - PCV) 2000 Dilated Eye Exam 11/11/2017 11/11/2016, 10/07/2016 Foot Exam 10/05/2019 10/04/2018 Hemoglobin A1C 03/17/2020 09/17/2019, 0801/2019, 10/04/2018, Additional history exists Depression Screening 09/17/2020 09/17/2019, 03/26/2019, 05/04/2017 Lipid Panel 09/17/2020 09/17/2019, 0 01/2019, 08/10/2017, Additional history exists TSH Level 09/17/2020 09/17/2019, 0 01/2019, 05/04/2017 eGFR 09/17/2020 09/17/2019, 10/04/2018 Influenza Vaccine (Season Ended) 2025 09/12/2016 HPV Vaccines Aged Out No longer eligi ble based on patient's age to complete this topic Procedures Procedure Name Priority Date/Time Associated Diagnosis Comments COMPREHENSIVE METABOLIC PANEL Routine 09/17/2019 10:12 AM HEARING DOG TRAINER Type 1 diabetes mellitus with hyperglycemia (HCC) LIPID PANEL Routine 09/17/2019 10:12 AM HEARING DOG TRAINER Type 1 diabetes mellitus with hyperglycemia (HCC) TSH Routine 09/17/2019 10:12 AM HEARING DOG TRAINER Hypothyroidism, unspecified type POCT HEMOGLOBIN A1C Routine 09/17/2019 9 :10 AM HEARING DOG TRAINER Type 1 diabetes mellitus with hyperglycemia (HCC) DIABETIC EYE EXAM Routine 11/11/2016 from Last 3 Months or Most Recently Relevant to Health Maintenance Results * (ABNORMAL) TSH (09/17/2019 10:12 AM HEARING DOG TRAINER) TSH 8.390(H) 0.450 - 4.500 uIU/mL [facility] - 01 Blood specimen (specimen) 09/17/2019 10:12 AM HEARING DOG TRAINER 09/17/2019 Narrative [facility] - 09/18/2019 8:13 AM HEARING DOG TRAINER Performed at: - [facility] [id number] Telecommunication Engineer: Willi Almeida PhD, Phone: [phone] us Med Gaspar MD LAB BLOOD ORDERABLES Final Resul t Performing Organization Address [facility] Co de Phone Number [facility] - * (ABNORMAL) Lipid panel (09/17/2019 10:12 AM HEARING DOG TRAINER) Cholesterol 340(H) 100 - 199 mg/dL [facility] [...] 2011;5:133-140 Blood specimen (specimen) 09/17/2019 10:12 AM HEARING DOG TRAINER 09/17/2019 Narrative [facility] - 09/18/2019 8:13 AM HEARING DOG TRAINER Performed at: 01 - [facility] [id number] Telecommunication Engineer: Willi Almedia PhD, Phone: [phone] Med Gaspar MD LAB BLOOD ORDERABLES Final Resul t Performing Organization Address [facility] Co de Phone Number [facility] - 01 * (ABNORMAL) Comprehensive metabolic panel (09/17/2019 10:12 AM HEARING DOG TRAINER) Glucose 165(H) 65 - 99 mg/dL [facility] [...] 01 Blood specimen (specimen) 09/17/2019 10:12 AM HEARING DOG TRAINER 09/17/2019 Narrative [facility] - 09/18/2019 8:13 AM HEARING DOG TRAINER Performed at: - [facility] [id number] Telecommunication Engineer: Willi Almeida PhD, Phone: [phone] Med Gaspar MD LAB BLOOD ORDERABLES Final Resul t [facility] - 01 * POCT hemoglobin A1c (09/17/2019 9:10 AM HEARING DOG TRAINER) Hemoglobin A1C, POC 10.4 Blood specimen (specimen) 09/17/2019 9:10 AM HEARING DOG TRAINER Result [facility] Med Gaspar MD POINT OF CARE TEST ORDERABLES Fi nal Result * Diabetic Eye Exam (11/11/2016) Jeanine Phillips MD HEALTH MAINTENANCE Edited Result - Final from Last 3 Months or Most Recently Relevant to Health Maintenance Insurance [employer] Care Teams Senior Software Analyst Relationship Specialty [place] [id number] [address] PCP - General 10/28/16 Grace Delgaod MD [address] [facility] [address] [place] [address] Referring Physician Nephrology 09/11/24
--- OUTSIDE RECORDS SUMMARY | 2025-01-08 17:27 | XMS_ITS | Clinical Summary ---
Author Organization [facility] Address [address] [place] [phone] Phone Care Team Providers Care Director News Name Role Phone Don Crowley Primary Care Provider [phone] Allergies No known active allergies Medications insulin glargine (BASAGLAR KWIKPEN) 100 UNIT/ML injection Inject 32 units q hs. 9 Active furosemide (LASIX) 20 MG tablet Take 1 tablet by mouth daily. 8 Active levothyroxine (SYNTHROID, LEVOTHROID) 125 MCG tablet Take 125 mcg by mouth daily. 9 Active lisinopril (PRINIVIL,ZEST RIL) 40 MG tablet 40 mg. 7 Active terazosin (HYTRIN) 2 MG capsule Take 2 mg by mouth daily. 7 Active dilTIAZem CD (CARDIZEM CD) 240 MG 24 hr capsule TAKE 1 CAPSULE BY MOUTH TWICE A DAY 60 capsule 1 9 Active Alcohol Swabs (Alcohol Wipes) 70 % pads Alcohol Prep Pads 9 Active Continuous Blood Gluc Sensor (Dexcom G6 Sensor) misc CHANGE EVERY 10 DAYS 2 Active liothyronine (CYTOMEL) 5 MCG tablet TAKE 1 TABLET BY MOUTH EVERY DAY IN THE MORNING 2 Active HumaLOG KWIKPEN 200 UNIT/ML solution pen-injector injection INJECT 40 UNITS SUBCUTANEOUSLY 3 TIMES DAILY DIRECTED FOR 30 DAYS 2 Active rosuvastatin (CRESTOR) 20 MG tablet TAKE 1 TABLET BY MOUTH EVERYDAY AT BEDTIME 2 Active Tresiba FlexTouch 200 UNIT/ML injection INJECT 28 UNITS EVERY DAY BY SUBCUTANEOUS ROUTE AT BEDTIME FOR 30 DAYS 2 Active Glucagon (Gvoke HypoPen 2-Pack) 1 MG/0.2ML solution auto-injector 1 mg Active Active Problems Problem Noted Date Diagnosed Date Body mass index 40+ - severely obese 09/17/2019 Type 1 diabetes mellitus with hyperglycemia 10/30 Overview (01/09/2019): Last Assessment & Plan: A1c 9.6. Increase Basaglar to 32 units. Use 1 unit per 10 grams carbs. Sliding scale before meals.175 to 220 add 1 unit Then 1 unit per 30 points your sugar is above 220. Be very specific about taking correct amount of insulin. BG goals revewed. Morbid obesity 08/16/2017 Overview (01/09/2019): Last Assessment & Plan: Needs to be more observant of calories plus carbs consumed daily. Body mass index 40+ - severely obese 08/16/2017 Overview (03/16/2022): Last Assessment & Plan: Needs to be more observant of calories plus carbs consumed daily. 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 Doubt that lack of wt loss is largely d/t thyroid medication. Other hyperlipidemia 09/11/2016 Overview (10/13/2018): Converted unresolved ICD9, potential mismatch. Other proteinuria 09/11/2016 Hypertension 04/19/2012 Overview (01/09/2019): Overview: Hypertension, Unspecified Last Assessment & Plan: Controlled on current medications. Immunizations Immunization Administration Dates Next Due Influenza TIV (IM) 09/12/2016 Sars-cov-2, Unspecified 11/04/2020 Family History Medical History Relation Comments Kidney disease Neg Hx Kidney stone Neg Hx Social History Tobacco Use Types Packs/Day Years Used Date Smoking Tobacco: Never Smokeless Tobacco: Never Alcohol Use Standard Drinks/Week Comments Yes 0 (1 standard drink = 0.6 oz pur e alcohol) Sex and Gender Information Value Date Recorded Sex Assigned at Not on file Legal Sex Male 8:55 AM MST Gender Identity Not on file Sexual Orientation Not on file Last Filed Vital Signs Vital Sign Reading Time Taken Comments Blood Pressure 130/80 03/16/2022 11:28 AM CDT Pulse - - Temperature 37.3 C (99.1 F) 03/16/2022 11:28 AM CDT Respiratory Rate 18 03/16/2022 11:28 AM CDT Oxygen Saturation - - Inhaled Oxygen Concentration - - Weight 157 kg (346 lb) 03/16/2022 11:28 AM CDT Height 195.6 cm (6' 5) 03/16/2022 11:28 AM CDT Body Mass Index 41.03 03/16/2022 11:28 AM CDT Plan of Treatment Health Maintenance Due Date Last Done Comments Influenza Vaccine (Season Ended) 2025 09/12/19 17 Insurance [employer] Care Teams Director News Relationship Specialty Start Date End Date Don Crowley PA [address] [place] [address] PCP - General 03/16/22
--- OUTSIDE RECORDS SUMMARY | 2025-01-08 17:27 | XMS_ITS | Data Portability ---
Author Organization [facility] Address [address] [place] [phone] Assessment No assessment recorded. Plan of Treatment Reminders Order Date Submit Date Provider Last Modified By Organization Details Last Modified Time Details Appointments None record ed. Lab None record ed. Referral None record ed. Procedures None record ed. Surgeries None record ed. Imaging None record ed. Medication Orders None record ed. Patient TargetsNo targets recorded. Patient InstructionsNo instructions recorded. Reason for Referral None Reported. Medical Equipment None Reported. Vitals None Recorded Social History None recorded. Functional Status None recorded. Mental Status None recorded. Family History Nothing Reported. Medical History No medical history recorded. Immunizations Vaccine Type Date Status Note Provider Nam e and Address Organization Details Recorded Time COVID-19, mRNA, LNP-S, PF, 100 mcg/0.5mL dose or 50 mcg/0.25mL dose 11/27/2020 completed Bee Felix [facility], [facility] 11/27/2020 14:46:01 COVID-19, mRNA, LNP-S, PF, 100 mcg/0.5mL dose or 50 mcg/0.25mL dose 12/25/2020 completed Treasure Case RN [facility], [facility] 12/25/2020 12:05:34 Past Encounters Encounter ID Performer Location Encounter Start Date Encounter Closed Date Diagnosis/Indication Diagnosis SNOMED-CT Code Diagnosis ICD10 Code Diagnosis Note [id number] MD Taty Patrick 14 IM 4 [facility] [address] [place] [address] 11/27/2020 11:55:41 11/27/2020 16:14:21 Administration of SARS-CoV-2 antigen vaccine [id number] Z23 [id number] MD Taty Patrick 14 IM 4 [facility] [address] [place] [address] 12/25/2020 11:49:27 12/25/2020 15:38:40 Administration of SARS-CoV-2 antigen vaccine [id number] Z23 Health Concerns Section Related Observation LastModified by Organization Detai ls LastModified Time None Recorded Concern Status LastModified by Organization Details LastModified Time None Recorded Advance Directives Directive None Recorded Payers Encounter Date Sequence Insurance Name Policy Number Policy [place] Covered Member ID [place] Member ID Guarantor Name 11/27/2020 [employer]CE[employer] Don Aden [id number] Don Aden 12/25/2020 [employer] Don Aden [id number] Don Aden
--- OUTSIDE RECORDS SUMMARY | 2025-01-08 17:27 | XMS_ITS | Data Portability ---
Author Organization [place] - [facility], Main Office Address [address] [place] [address] Assessment Encounter Date Assessment Date Assessment LastModified by Organization Details LastModified Time 01/26/2023 01/26/2023 The patient gave verbal consent using TelePhonic services and the consent is documented in the medical record prior to using the service. The patient has been informed of what a TeleMedicine visit is. Patient is located at home. Provider is located at office. Names and roles of persons in addition to the patient and provider participating in telemedicine services include none. The patient had a 22 minute TeleMedicine consultation via phone call to discuss the following: [email or web address] Not available 01/26/2023 17:34:01 Plan of Treatment Reminders Order Date Submit Date Provider Last Modified By Organization Details Last Modified Time Details Appointments None recorded. Lab TSH + free T4, serum 2022 023 [facility] (Lab), [address] [place] [address], [address], 3 18:12:50 T3, free, serum or plasma 2022 023 [facility] (Lab), [address] [place] [address], [address], 3 18:12:50 lipid panel, serum 2022 023 [facility] (Lab), [address] [place] [address], [address], 3 18:12:50 CMP, serum or plasma 2022 023 [facility] (Lab), [address] [place], [address], 3 18:12:50 HbA1c (hemoglobi n A1c), blood 2022 023 [facility] (Lab), [address] [place], [address], 3 18:12:50 Referral None recorded. Procedures None recorded. Surgeries None recorded. Imaging None recorded. Medication Orders Unithroid 150 mcg tablet 2022 023 [facility][id number], [address], [place], [place], [id number], 3 16:43:21 rosuvastat in 20 mg tablet 2022 023 [facility] #[id number], [address], [place], [place], [id number], 3 16:43:06 insulin aspart (U-100) 100 unit/mL (3 mL) subcutaneo us pen 2022 023 [facility] #[id number], [address], [place], [place], [id number], 3 16:42:47 Tresiba FlexTouch U-200 insulin 200 unit/mL (3 mL) subcutaneo us pen 2022 023 [facility] #[id number], [address], [place], [place], [id number], 3 16:42:45 Gvoke HypoPen 2-Pack 1 mg/0.2 mL subcutaneo us auto-injec tor 2022 023 [facility] #[id number], [address], [place], [place], [id number], 16:43:57 Patient TargetsNo targets recorded. Patient Instructions Encounter Date Encounter Id Patient Instructions Last Modified By Organization Details Last Modified Time 01/26/2023 [id number] Due to the COVID-19 (Novel Coronavirus) pandemic, it is within this context (and with the understanding that this method of patient encounter is in the patient s best interest as well as the health and safety of other patients and the public) that telehealth is being provided for this patient encounter rather than a kicb-lu-vooz visit. This patient encounter is appropriate at this time. This patient has been advised of the potential risks and limitations of this mode of treatment (including, but not limited to, the absence of in-person examination) and has agreed to be treated in a remote fashion despite these risks. Any and all of the patient s/patient s family s questions on this issue have been answered, and I have made no promises or guarantees to the patient. The patient has also been advised to contact this office for worsening conditions or problems, and seek emergency medical treatment and/or call 911 if the patient deems either necessary. HPI and/or vitals, if listed, were provided by the patient. Due to the nature of telemedicine, the ability to do physical assessment was limited to what can be accomplished by patient directed telephonic visit based on instruction. Those limits are understood by the patient and myself. Impression is based on history, available information, and physical findings accomplished with telephonic visit. Chronic disease/problem list/medication list reviewed and updated where indicated. Discussed diagnosis, plan including risks, benefits and options of treatment. Advised to call for new, worsening or persistent symptoms. Level of patient risk was of moderate complexity due to the documented nature of presentation, the information assessment required and the nature of the development of an evaluation and treatment plan as documented. PMH, FHx, SHx, Surgical Hx, Quality Management review carried out and addressed as documented today as part of this visit. Medication list was reviewed and adjusted as indicated. Medication requiring a refill was addressed. Risk and benefits of any new medications were discussed and all questions were answered. [email or web address] Not available 01/26/2023 16:44:30 Reason for Referral None Reported. Results Created Date Observation Date Name Description Value Unit Range Abnormal Flag Note LastModifiedBy Organization Detail LastModifiedTime Result Notes None recorded. Problems Name Problem SNOMED Code Status Onset Date Resolution Date Notes Provider Name and Address Organization Details Recorded Time Dyslipidem ia 607712714 Active 2021 Not Available [facility] 3 21:49:32 Hypertensi ve disorder 97125652 Active 2019 Not Available [facility] 3 21:49:32 Hypothyroi dism 34157113 Active 2019 Not Available [facility] 3 21:49:32 Uncontroll ed type 1 diabetes mellitus 492807569 Active 2022 Not Available [facility] 3 21:49:32 Well controlled type 1 diabetes mellitus 738949520 Active 2021 Not Available [facility] 3 21:49:32 Type 1 diabetes mellitus 07661037 Active 2019 Not Available [facility] 3 21:49:32 Hyperlipid emia 55908596 Active 2019 Not Available [facility] 3 21:49:33 Essential hypertensi on 96534463 Active 2021 Not Available [facility] 3 21:49:33 Hypoglycem ia due to type 1 diabetes mellitus 8933303895161 8 Active 2021 Not Available [facility] 3 21:49:33 Postoperat lisa hypothyroi dism 27474754 Active 2022 Elizabeth Almazan MD [address] [place] [address], [place], [address] , [facility] [employer] [facility] 3 16:31:59 Problem Notes None recorded. Procedures Surgical History Date Name Laterality Status Provider Name and Address Organization Details Recorded Time thyroidectomy completed Not Available [facility] 09/28/2022 21:48:38 Knee Surgery [facility]/28[facility] 21:48:38 Eye Surgery completed Not Available [facility] 09/28/2022 21:48:38 Imaging Results None recorded. Procedure Notes None recorded. Medical Equipment None Reported. Medications Name Sig Start Date Stop Date Status Note LastModified by Organization Details LastModified Time levothyroxi ne 137 mcg tablet TAKE 1 TABLET BY MOUTH DAILY FOR 90 DAYS 01/26 completed Not Available Not Available Not Available atorvastati n 20 mg tablet 12/01 completed Not Available Not Available Not Available diltiazem CD 180 mg capsule,ext ended release 24 hr Take 1 capsule twice a day by oral route for 30 days. active Not Available Not Available No t Available hydrocodone 5 mg-acetamin ophen 325 mg tablet TAKE 1 TABLET BY MOUTH EVERY 6 HOURS NEEDED 03/29 completed Not Available Not Available Not Available diltiazem CD 240 mg capsule,ext ended release 24 hr TAKE 1 CAPSULE BY MOUTH TWICE A DAY AROUND THE CLOCK FOR 30 DAYS. active Not Available Not Available No t Available liothyronin e 5 mcg tablet TAKE 1 TABLET BY MOUTH EVERY DAY IN THE MORNING 01/26 completed Not Available Not Available Not Available terazosin 2 mg capsule Take 1 capsule every day by oral route in the morning for 30 days. active Not Available Not Available No t Available levothyroxi ne 125 mcg tablet TAKE 1 TABLET BY MOUTH EVERY DAY IN THE MORNING 09/12 completed Not Available Not Available Not Available Unithroid 150 mcg tablet TAKE 1 TABLET BY MOUTH EVERY DAY IN THE MORNING 2022 active Not Available Not Available Not Avai lable lisinopril 40 mg tablet TAKE 1 TABLET BY MOUTH EVERY DAY IN THE MORNING 03/29 completed Not Available Not Available Not Available amoxicillin 875 mg-potassiu m clavulanate 125 mg tablet TAKE 1 TABLET BY MOUTH TWICE A DAY 09/12 completed Not Available Not Available Not Available Novolog FlexPen U-100 Insulin aspart 100 unit/mL (3 mL) subcutaneou s ADMINISTE R 40 UNITS UNDER THE SKIN THREE TIMES DAILY active Not Available Not Available No t Available rosuvastati n 10 mg tablet 12/01 completed Not Available Not Available Not Available rosuvastati n 20 mg tablet Take 1 tablet every day by oral route as directed for 90 days. active Not Available Not Available No t Available Alcohol Prep Pads active Not Available Not Available No t Available BD Ultra-Fine Short Pen Needle 31 gauge x 12/13 active Not Available Not Available Not Available Humalog KwikPen (U-100) Insulin 100 unit/mL subcutaneou s Inject 35 units 3 times a day by subcutane ous route before meals for 30 days. 10/23 completed Not Available Not Available Not Available Levemir FlexTouch U-100 Insulin 100 unit/mL (3 mL) subcutaneou s pen 12/01 completed Not Available Not Available Not Available Humalog KwikPen U-200 Insulin 200 unit/mL (3 mL) subcutaneou s INJECT 40 UNITS UNDER THE SKIN THREE TIMES DAILY DIRECTED 01/26 completed Not Available Not Available Not Available Tresiba FlexTouch U-200 insulin 200 unit/mL (3 mL) subcutaneou s pen active Not Available Not Available Not Available Basaglar KwikPen U-100 Insulin 100 unit/mL (3 mL) subcutaneou s INJECT 22 UNITS IN THE MORNING AND 26 UNITS AT BEDTIME active Not Available Not Available No t Available BD Ultra-Fine Micro Pen Needle 32 gauge x 1/4 USE DIRECTED 4 TIMES A DAY WITH INSULIN active Not Available Not Available No t Available OneTouch Ultra Blue Test Strip Take 1 strip 4 times a day by miscell. route before meals for 30 days. active Not Available Not Available No t Available Dexcom G6 Sensor device USE DIRECTED AND CHANGE EVERY 10 DAYS active Not Available Not Available No t Available Dexcom G6 Transmitter device USE DIRECTED. REPLACE EVERY 3 MONTHS active Not Available Not Available No t Available Omnipod Dash Pods (Gen 4) subcutaneou s cartridge active Not Available Not Available Not Available Baqsimi 3 mg/actuatio n nasal spray TAKE 3 MG NEEDED BY NASAL ROUTE NEEDED FOR 2 DAYS. 09/13 completed Not Available Not Available Not Available Gvoke HypoPen 2-Pack 1 mg/0.2 mL subcutaneou s auto-inject or Inject 1 mg as needed by subcutane ous route as needed for 1 day. active Not Available Not Available No t Available Vitals Date Recorded Body height Provider Name an d Address Organization Details Last Updated DateTime 09/12/2022 195.58 cm Not Available [facility] 3 21:48:48 Date Recorded Body height Provider Name an d Address Organization Details Last Updated DateTime 10/23/2020 195.58 cm Not Available [facility] 3 21:48:48 Date Recorded Body height Body mass index (BMI) Body weight Provider Name and Address Organization Details Last Updated DateTime 01/26/2023 195.58 cm 40.3 kg/m2 373096.41 g CESAR Hawkins [place] [facility] 01/26/2023 16:21:13 Date Recorded Body mass index (BMI) Body height Oxygen saturation Oxygen saturation in Arterial blood by Pulse oximetry Heart rate Body temperature Body weight Systolic blood pressure Diastolic blood pressure Provider Name and Address Organization Details Last Updated DateTime 2 40.7 kg/m2 195.58 cm 97 % 97 % 90 /min 97.7 [degF] 206253. 18 g 145 mm[Hg] 85 mm[Hg] Not Available [facility] 21:48:47 Social History Question Answer Notes LastModified by [employer] Details LastModified Time Tobacco Smoking Status Former Smoker quit 3 -4 yrs ago Not Available [facility] 09/28/2022 21:48:22 What Is Your Level Of Caffeine Consumption? Moderate [id number] Information not available 09/28/2022 How Much Tobacco Do You Chew? None [id number] Information not available 09/28/2022 In The 14 Days Before Symptom Onset, Have You Had Close Contact With A Laboratory-confir med COVID-19 While That Case Was Ill? No [id number] Information not available 09/28/2022 In The 14 Days Before Symptom Onset, Have You Had Close Contact With A Person Who Is Under Investigation For COVID-19 While That Person Was Ill? No [id number] Information not available 09/28/2022 What Type Of Diet Are You Following? REGULAR [id number] Information not available 09/28/2022 Which Illicit Or Recreational Drugs Have You Used? None [id number] Information not available 09/28/2022 What Is Your Relationship Status? [id number] Information not available 09/28/2022 How Much Tobacco Do You Smoke? No [id number] Information not available 09/28/2022 Have You Recently Traveled Abroad? No [id number] Information not available 09/28/2022 Do You Have Any Dietary Restrictions? No [id number] Information not available 09/28/2022 Sex: Male Functional Status Question Answer Note LastModified by [employer] Details LastModified Time Do you use any illicit or recreational drugs? No [id number] Information not available 09/28/2022 What is your level of alcohol consumption? Occasional [id number] Information not available 09/28/2022 Do you or have you ever used smokeless tobacco? Never used smokeless tobacco [id number].[id number] Information not available 09/28/2022 Do you or have you ever used e-cigarettes or vape? Never used electronic cigarettes [id number] Information not available 09/28/2022 Mental Status None recorded. Family History Nothing Reported Notes:Pt request to declined -kt Medical History Condition Response DIABETES, TYPE Y KIDNEY DISEASE Y HYPERTENSION Y HIGH CHOLESTEROL / HYPERLIPIDEMIA Y HYPOTHYROIDISM Y RETINOPATHY Y Past Encounters Encounter ID Performer Location Encounter Start Date Encounter Closed Date Diagnosis/Indication Diagnosis SNOMED-CT Code Diagnosis ICD10 Code Diagnosis Note [id number] Elizabeth Almazan MD [facility] [address] [place] [address] 10/23/2020 00:00:00 10/23/2020 12:23:14 [id number] Elizabeth Almazan MD [facility] [address] [place] [address] 09/13/2021 00:00:00 09/13/2021 15:02:[id number] [facility] [address] [place] [address] 03/29/2022 00:00:00 03/29/2022 17:47:57 [id number] Elizabeth Almazan MD [facility] [address] [place] [address] 09/12/2022 00:00:00 09/12/2022 10:21:22 [id number] Elizabeth Almazan MD [facility] [address] [place] [address] 01/26/2023 16:12:30 01/26/2023 17:03:48 Well controlled type 1 diabetes mellitus 890400577 E10.9 a1c in 6% range per dexcom readings- continue on tresiba 27 units at bedtime and patient aware on self titration guidelines to maintain fasting glucose in goal range. Continue novolog 1:5 carb ratio along with correction of 2U:50>150 mg/dL. Continue on dexcom CGM for closer monitoring . Refill gvoke for hypoglycem ia. Postoperat lisa hypothyroidism 54330081 E89.0 Send for thyroid panel- continue on unithroid 150 mcg daily as this has maintained his levels- thyroid not drawn at most recent lab draw. He was reminded to take his unithroid on empty stomach with glass of water and wait one hour to eat or have her coffee in morning and up to 4 hours if ever taking any heartburn or reflux medication s to help optimize absorption . Discussed paleo like diet with restrictio n of GMOs to help with energy and to optimize absorption of vitamins and minerals and reduce inflammati on. Dyslipidemia 547141166 E 78.5 Continue rosuvastat in 20 mg daily as LDL in range. Spent up to 22 minutes preparing to see the patient (eg, review of tests), obtaining and/or reviewing separately obtained history, performing a medically appropriat e examinatio n and evaluation , counseling and educating the patient, ordering medication s, tests, along with documentin g clinical informatio n in the electronic health record, independen tly interpreti ng results and communicat ing results to the patient. RTC in 4-6 months. Patient was provided a handwritte n lab order which contains our fax number. If he chooses to go outside of the [facility] system to obtain labwork he was advised to provide our fax number and my informatio n to the lab he will be obtaining labwork from in order to have his labs properly forwarded over for me to review so there is no loss of follow up due to use of outside network. He was also advised to contact our clinic informing us that he has completed his labwork so we are aware we will need to reach out to the appropriat e laboratory to request his results be forwarded to us so I might have the ability to review and make further medical decision making in his case. He voiced understand ing. Health Concerns Section Related Observation LastModified by Organization Detai ls LastModified Time None Recorded Concern Status LastModified by Organization Details LastModified Time None Recorded Advance Directives Directive None Recorded Payers Encounter Date Sequence Insurance Name Policy Number Policy [place] Covered Member ID [place] Member ID Guarantor Name 01/26/2023 1 [facility] ([facility] [id number] Don Aden [id number] Don Aden Notes Date Note Type Note Provider Name and Address Organization Details Recorded Time 01/26/2023 text/html 42 yo male calls in today to initiate telephonic visit to discuss progress and management of now better controlled type I DM (A1C in 6% range) and postoperative hypothyroidism last seen in Aug at that time we had patient continue tresiba 28 units at bedtime and novolog 1:5 carb ratio along with correction of 2U:50>150 mg/dL. 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 He is looking into potential stem cell therapy through [facility] for his CKD. we continued unithroid 150 mcg daily- he has no issues with palpitations or flutters; does have good sleep. He feels his a1c is around 7% or less - in 6% range. He has no issues with hypoglycemia or lows. He has noticed his left leg does swell more from calf down. He does well once he is at home and able to get his legs up. He has a titanium ozzy in his leg. labs from 01/23/23:vit D lowPTH high with low calcium(secondary hyperpara)Cr 3.34 uIU/ml with GFR 20 ml/minvit D 13 ng/mLprotein ratio high 3.2glucose 155 mg/dLLFT normal Elizabeth Almazan MD [address] [facility], [facility] [address], [place], [address], [place] [facility] [email or web address] 01/26/2023 17:36:08
--- OUTSIDE RECORDS SUMMARY | 2025-01-08 17:27 | XMS_ITS | Continuity of Care Document ---
Author Organization [facility] Address [address] [place] [address] Phone Care Team Providers Care Buckle Sewer Name Role Phone Bonifacio KIMBALL, Jona Unavailable Unavailabl e Allergies, Adverse Reactions, Alerts Substance Reaction Status Criticality No Known Allergies Active No Inform ation Medications Medication Instructions Dosage Effective Dates (start - stop) Status Comments bumetanide 2 mg tablet - Act lisa calcium acetate(phosphate binders) 667 mg capsule TAKE 1 CAPSULE BY MOUTH THREE TIMES DAILY WITH MEALS - Active rosuvastatin 20 mg tablet TAKE 1 TABLET BY MOUTH DAILY - Active nifedipine ER 90 mg tablet,extended release TAKE 1 TABLET BY MOUTH TWICE DAILY - Active ergocalciferol (vitamin D2) 1,250 mcg (50,000 unit) capsule TAKE 1 CAPSULE BY MOUTH WEEKLY - Active levothyroxine 150 mcg tablet TAKE 1 TABLET BY MOUTH DAILY - Active Novolog FlexPen U-100 Insulin aspart 100 unit/mL (3 mL) subcutaneous - Active Tresiba FlexTouch U-200 insulin 200 unit/mL (3 mL) subcutaneous pen INJECT 26 UNITS UNDER THE SKIN EVERY NIGHT AT BEDTIME - Active Dexcom G6 Terrazzo Roller USE DIRECTED - A ctive Cartia XT 180 mg capsule,extended release TAKE 1 CAPSULE BY MOUTH TWICE DAILY - Active Procedures Procedure Date REMOVE TUNNELED CVC To Be Coded Removal tunneled cv cath Removal tunneled cv cath To Be Coded E/M NON BILLABLE EVENT E/M NON BILLABLE EVENT CONTRAST, 300/ML, PER ML MOD SED BY OR SUP BY PHYSICIAN PD CATH INSERT Radiation Exposure Documented To Be Coded Insert arabella ip cath perc Mod sed same phys/qhp 5/>yrs Mod sed same phys/qhp ea Insert arabella ip cath perc Mod sed same phys/qhp 5/>yrs Mod sed same phys/qhp ea To Be Coded E/M NON BILLABLE EVENT E/M NON BILLABLE EVENT INSERT TUNNELED CV CATH >5YRS Sterile Barrier Technique Followed Radiation Exposure Documented To Be Coded Insert tunneled cv cath Us guide vascular access Fluoroguide for vein device Cath impl vasc access portal Insert tunneled cv cath Us guide vascular access Fluoroguide for vein device Advance Directives Directive Yes / No Effective Date File Name No Information Encounters Encounter Description Practice Location Reason(s) For Visit Diagnoses Date Provider Providers Copied on Encounter [facility], [address] [place] [address], [id number], tel:[phone] [facility] No Information Bonifacio Tenorio. [address] [place] [address], [id number], [place]. tel:[phone] [facility], [address] [place] [address], [id number], [place] tel:[phone] [facility] Bonifacio Tenorio. [address] [place] [address], [id number], [place]. tel:[phone] Referring Provider: Lilo Delgado, [address] [facility] [address], [place], [address]. tel:[phone] [facility], [address] [place] [address], [id number], [place] tel:[phone] [facility] Valdovinos Jona. [address] [place] [address], [id number], [place]. tel:[phone] Referring Provider: Lilo Delgado, [address] [place] [address] Suite [facility], [place], [address]. tel:[phone] [facility], [address] [place] [address], [id number], [place] tel:[phone] [facility] End stage renal disease Valdovinos Jona. [address] [place] [address], [id number], [place]. tel:[phone] Referring Provider: Lilo Delgado, [address] [place] [address] Suite [facility], [place], [address]. tel:[phone] [facility], [address] [place] [address], [id number], [place] tel:[phone] [facility] End stage renal disease Valdovinos Jona. [address] [place] [address], [id number], [place]. tel:[phone] Referring Provider: Lilo Delgado, [address] [place] [address] [place] [address], [id number]. tel:[phone] [facility], [address] [place] [address], [id number], [place] tel:[phone] [facility] Valdovinos Jona. [address] [place] [address], [id number], [place]. tel:[phone] Referring Provider: Lilo Delgado, [address] [place] [address] Suite [facility], [place], [address]. tel:[phone] [facility], [address] [place] [address], [id number], [place] tel:[phone] [facility] Valdovinos Jona. [address] [place] [address], [id number], [place]. tel:[phone] Referring Provider: Lilo Delgado, [facility] [address] [place] [address], [id number]. tel:[phone] [facility], [address] [place] [address], [id number], tel:[phone] [facility] Valdovinos Jona. [address] [place] [address], [id number], . tel:[phone] Referring Provider: Lilo Delgado, [address] [place] [address] Suite [facility], [place], [address]. tel:[phone] [facility], [address] [place] [address], [id number], tel:[phone] [facility] Valdovinos Jona. [address] [place] [address], [id number], . tel:[phone] Referring Provider: Lilo Delgado, [address] [place] [address] [place] [address], [address]. tel:[phone] [facility], [address] [place] [address], [id number], tel:[phone] [facility] Valdovinos Jona. [address] [place] [address], [id number], . tel:[phone] Referring Provider: Lilo Delgado, [address] [place] [address] [place] [address], [id number]. tel:[phone] [facility], [address] [place] [address], [id number], tel:[phone] [facility] Valdovinos Jona. [address] [place] [address], [id number], . tel:[phone] Referring Provider: Lilo Delgado, [address] [place] [address] [place] [address], [address]. tel:[phone] As per patient privacy policy some of the clinical information may not be visible. Family History Family Member Type Diagnosis Age At Onset No Information Payers Payer name Insurance type Covered green party ID Ran cueto(suellen [facility] [id number] Social History Type Description Quantity Date Captured Comments Sex Male Smoking Status No Information Gender Identity Male Chief Complaint And Reason For Visit No Information Reason For Referral Reason For Referral No Information Plan Of Treatment Date Type Action Status Future Order: Radiology Order Lo wer Body Flouroscopy ([id number]), Ordered on: Ordered Future Order: Radiology Order Up per Body Flouroscopy ([id number]), Ordered on: Ordered History Of Present Illness Encounter Date Complaint History Of Prese nt Illness No Information Functional Status Date Functional Assessmen t No Information Instructions Date Instruction Additional Infor mation No Information Assessments Type Assessment Date No Information Patient Care Teams Name Effective Dates (start - stop) Status Members No Information
--- OUTSIDE RECORDS SUMMARY | 2025-01-08 17:27 | XMS_ITS | Encounter Summary ---
Author Organization [facility] Address [address] [place] [address] Phone Care Team Providers Care Clerical Adjudicator Name Role Phone Don Crowley Primary Care Provider [phone] Reason for Visit * Reason Comments Med Refill Encounter Details Date Type Department Care Team (Late st Contact Info) Description 03/28/2019 Refill [facility] Nephrology and Hypertension [address] [facility], [address] [place] [address] Grace Delgado MD [address] [facility], [address] [place] [address] Social History Tobacco Use Types Packs/Day Years Used Date Smoking Tobacco: Never Smokeless Tobacco: Never Alcohol Use Standard Drinks/Week Comments Yes 0 (1 standard drink = 0.6 oz pur e alcohol) Sex and Gender Information Value Date Recorded Sex Assigned at Not on file Legal Sex Male 8:55 AM [facility] Gender Identity Not on file Sexual Orientation Not on file documented as of this encounter Plan of Treatment Not on file documented as of this encounter Visit Diagnoses Not on filedocumented in this encounter Care Teams Clerical Adjudicator Relationship Specialty Start Date End Date Don Crowley PA [address] [place] [address] PCP - General 03/16/22 documented as of this encounter
--- OUTSIDE RECORDS SUMMARY | 2025-01-08 17:27 | XMS_ITS | Encounter Summary ---
Author Organization [facility] Address [address] [place] [address] Phone Care Team Providers Care Design Chief Name Role Phone Don Crowley Primary Care Provider [phone] Reason for Visit * Reason Comments Med Refill Encounter Details Date Type Department Care Team (Late st Contact Info) Description 04/27/2019 Refill [facility] Nephrology and Hypertension [address] [facility], [address] [place] [address] Grace Delgado MD [address] [facility], [address] [place] [address] Social History Tobacco Use Types Packs/Day Years Used Date Smoking Tobacco: Never Smokeless Tobacco: Never Alcohol Use Standard Drinks/Week Comments Yes 0 (1 standard drink = 0.6 oz pur e alcohol) Sex and Gender Information Value Date Recorded Sex Assigned at Not on file Legal Sex Male 8:55 AM [facility] Gender Identity Not on file Sexual Orientation Not on file documented as of this encounter Plan of Treatment Not on file documented as of this encounter Visit Diagnoses Not on filedocumented in this encounter Care Teams Design Chief Relationship Specialty Start Date End Date Don Crowley PA [address] [place] [address] PCP - General 03/16/22 documented as of this encounter
== END 2025-01-08 14:53 | disposition home or self-care (01) ==
PROVIDERS: Visit Provider Internal Medicine Nephrology
DX: R10.9 Unspecified abdominal pain (principal); T85.611A Breakdown (mechanical) of intraperitoneal dialysis catheter, initial encounter
CPT/HCPCS: 74018

== ENCOUNTER 2025-01-09 12:40 | Emergency (ER) | payer OTHER, SELFPAY ==
[2025-01-09] VITALS (10 sets, daily range): BP systolic 117–165; BP diastolic 63–99; PULSE 78–98; RESP 16–20; TEMP 36.7; O2SAT 96–100
--- NOTE | ~2025-01-09 | CT_ITS ---
EXAMINATION: CT abdomen pelvis w con DATE: 01/09/2025 14:00 INDICATION: Left lower quadrant abdominal pain TECHNIQUE: Computed tomography (CT) of the abdomen and pelvis was performed with 100 mL Omnipaque-350 intravenous contrast. Automated exposure control and iterative reconstruction technique were employe d. The dose-length product was 1837.34 mGy-cm. COMPARISON: CT dated 01/20/2021 FINDINGS: Mild dependent atelectasis in bilateral lower lobes with additional atelectasis/scarring in tear at t he left lung base. Heart size normal. Atherosclerotic coronary artery calcific lesion. No pericardial effusion. Liver, decompressed gallbladder, pancreas and bilateral adrenal glands are normal. Nonspec ific mild splenomegaly measuring 14.2 cm in maximal length which could be related to body habitus. Th ere is moderate bilateral renal cortical atrophy which has increased since the prior study. Peritonea l dialysis catheter coiled in the left hemipelvis with small amount of free fluid scattered throughou t the abdomen and pelvis. No bowel obstruction. Normal appendix. Bladder is normal. No abscess or grace e intraperitoneal gas. No pathologically enlarged abdominal or pelvic lymphadenopathy. Chronic appear ing L1 compression fracture with 20% anterior vertebral body height loss which is new since the prior study. Moderate lower thoracic and mild lumbar spondylosis. IMPRESSION: 1. Small amount of free fluid scattered throughout the abdomen and pelvis likely related to peritonea l dialysis with dialysis catheter coiled in the left hemipelvis. No other acute intra-abdominal/pelvi c process. 2. Interval progression of now moderate bilateral renal cortical atrophy 3. Nonspecific mild splenomegaly which may be related to body habitus. Reviewed, dictated and finalized at location A. IMPRESSION: 1. Small amount of free fluid scattered throughout the abdomen and pelvis likel y related to peritoneal dialysis with dialysis catheter coiled in the left sherry pelvis. No other acute intra-abdominal/pelvic process. 2. Interval progression of now moderate bilateral renal cortical atrophy 3. Nonspecific mild splenomegaly which may be related to body habitus.
--- OUTSIDE RECORDS SUMMARY | 2025-01-09 13:05 | XMS_ITS | Clinical Summary ---
Author Organization [facility] Address [address] [place] [address] Phone Care Team Providers Care Lawn Mower Name Role Phone Don Crowley Primary Care Provider [phone] Allergies No known active allergies Medications insulin [...] 2025 09/12/19 17 Insurance [employer] Care Teams Lawn Mower Relationship Specialty Start Date End Date Don Crowley PA [address] [place] [address] PCP - General 03/16/22
--- OUTSIDE RECORDS SUMMARY | 2025-01-09 13:05 | XMS_ITS | Encounter Summary ---
Author Organization [facility] Address [address] [place] [address] Phone Care Team Providers Care Varnish Blender Name Role Phone Don Crowley Primary Care Provider [phone] Reason for Visit * Reason Comments Med Refill Encounter Details Date Type Department Care Team (Late st Contact Info) Description 04/27/2019 Refill [facility] Nephrology and Hypertension [address] [facility], [address] [place] [address] Grace Delgado MD [address] [facility], [address] [place] [address] Social History Tobacco Use Types Packs/Day Years Used Date Smoking Tobacco: Never Smokeless Tobacco: Never Alcohol Use Standard Drinks/Week Comments Yes 0 (1 standard drink = 0.6 oz pur e alcohol) Sex and Gender Information Value Date Recorded Sex Assigned at Not on file Legal Sex Male 8:55 AM [facility] Gender Identity Not on file Sexual Orientation Not on file documented as of this encounter Plan of Treatment Not on file documented as of this encounter Visit Diagnoses Not on filedocumented in this encounter Care Teams Varnish Blender Relationship Specialty Start Date End Date Don Crowley PA [address] [place] [address] PCP - General 03/16/22 documented as of this encounter
--- OUTSIDE RECORDS SUMMARY | 2025-01-09 13:05 | XMS_ITS | Clinical Summary ---
Author Organization [facility] Address [address] [place] [address] Care Team Providers Care Glass Forming Crew Member Name Role Phone Julius Harper MD Primary Care Provider [phone] Grace Delgado MD Unavailable [phone] Allergies No known active allergies Medications [...] 03/26/2019 Assessment & Plan (09/17/2019 12:59 PM RIG SUPERVISOR): Due to the high risk of of [...] 10/04/2018 Assessment & Plan (09/17/2019 12:58 PM RIG SUPERVISOR): Will check TSH and free T4 Will [...] 10/30 Assessment & Plan (09/17/2019 1:01 PM RIG SUPERVISOR): Your Hba1c today was: Lab Results Component Value Date HGBA1C 10.4 09/17/2019 meaning a 3 month average sugar of : 260 Your goal hba1c is under 7.0 to prevent intermediate frame tender diabetes complications ( eye , kidney and [...] discussed. Assessment & Plan (08/16/2017 12:26 PM RIG SUPERVISOR): Eye exam stable. Increase exercise as tolerated. [...] medications. Assessment & Plan (08/16/2017 12:25 PM RIG SUPERVISOR): Continue follow up and management per cardiology [...] Moser Assessment & Plan (08/16/2017 12:25 PM RIG SUPERVISOR): Will check lipids next OV. Assessment & [...] OV Assessment & Plan (08/16/2017 1:29 PM RIG SUPERVISOR): Clinically euthyroid. TSH at goal on current [...] on file Legal Sex Male 11:57 PM RIG SUPERVISOR Gender Identity Not on file Sexual Orientation Not on file Obstetrics History Last Filed Vital Signs Vital Sign Reading Time Taken Comments Blood Pressure 90/62 09/17/2019 8:57 AM RIG SUPERVISOR Pulse 79 09/17/2019 8:57 AM RIG SUPERVISOR Temperature 36.7 C (98 F) 09/06/2016 2:37 PM RIG SUPERVISOR Respiratory Rate 14 09/17/2019 8:57 AM RIG SUPERVISOR Oxygen Saturation 97% 09/06/2016 2:37 PM RIG SUPERVISOR Inhaled Oxygen Concentration - - Weight 166.4 kg (366 lb 13.5 oz) 09/11/2024 9:01 AM RIG SUPERVISOR Height 195.6 cm (6' 5) 09/11/2024 9:01 AM RIG SUPERVISOR Body Mass Index 43.5 09/11/2024 9:01 AM RIG SUPERVISOR Plan of Treatment Health Maintenance Due Date [...] COMPREHENSIVE METABOLIC PANEL Routine 09/17/2019 10:12 AM RIG SUPERVISOR Type 1 diabetes mellitus with hyperglycemia (HCC) LIPID PANEL Routine 09/17/2019 10:12 AM RIG SUPERVISOR Type 1 diabetes mellitus with hyperglycemia (HCC) TSH Routine 09/17/2019 10:12 AM RIG SUPERVISOR Hypothyroidism, unspecified type POCT HEMOGLOBIN A1C Routine 09/17/2019 9 :10 AM RIG SUPERVISOR Type 1 diabetes mellitus with hyperglycemia (HCC) DIABETIC EYE EXAM Routine 11/11/2016 from Last 3 Months or Most Recently Relevant to Health Maintenance Results * (ABNORMAL) TSH (09/17/2019 10:12 AM RIG SUPERVISOR) TSH 8.390(H) 0.450 - 4.500 uIU/mL [facility] - 01 Blood specimen (specimen) 09/17/2019 10:12 AM RIG SUPERVISOR 09/17/2019 Narrative [facility] - 09/18/2019 8:13 AM RIG SUPERVISOR Performed at: - [facility] [id number] [employer] R Instructor: Willi Almeida PhD, Phone: [phone] us Med Gaspar MD LAB BLOOD ORDERABLES Final Resul t Performing Organization Address [facility] Co de Phone Number [facility] - * (ABNORMAL) Lipid panel (09/17/2019 10:12 AM RIG SUPERVISOR) Cholesterol 340(H) 100 - 199 mg/dL [facility] [...] 2011;5:133-140 Blood specimen (specimen) 09/17/2019 10:12 AM RIG SUPERVISOR 09/17/2019 Narrative [facility] - 09/18/2019 8:13 AM RIG SUPERVISOR Performed at: 01 - [facility] [id number] [employer] Instructor: Willi Almeida PhD, Phone: [phone] Med Gaspar MD LAB BLOOD ORDERABLES Final Resul t Performing Organization Address [facility] Co de Phone Number [facility] - 01 * (ABNORMAL) Comprehensive metabolic panel (09/17/2019 10:12 AM RIG SUPERVISOR) Glucose 165(H) 65 - 99 mg/dL [facility] [...] 01 Blood specimen (specimen) 09/17/2019 10:12 AM RIG SUPERVISOR 09/17/2019 Narrative [facility] - 09/18/2019 8:13 AM RIG SUPERVISOR Performed at: - [facility] [id number] [employer] Instructor: Willi Almeida PhD, Phone: [phone] Med Gaspar MD LAB BLOOD ORDERABLES Final Resul t [facility] - 01 * POCT hemoglobin A1c (09/17/2019 9:10 AM RIG SUPERVISOR) Hemoglobin A1C, POC 10.4 Blood specimen (specimen) 09/17/2019 9:10 AM RIG SUPERVISOR Result [facility] Med Gaspar MD POINT OF CARE TEST ORDERABLES Fi nal Result * Diabetic Eye Exam (11/11/2016) Jeanine Phillips MD HEALTH MAINTENANCE Edited Result - Final from Last 3 Months or Most Recently Relevant to Health Maintenance Insurance [employer] Care Teams Glass Forming Crew Member Relationship Specialty [place] [id number] [address] PCP - General 10/28/16 Grace Delgado MD [address] [facility] [address] [place] [address] Referring Physician Nephrology 09/11/24
--- OUTSIDE RECORDS SUMMARY | 2025-01-09 13:05 | XMS_ITS | Referral Summary ---
Author Organization [facility] Address [address] [place] [address] Care Team Providers Care Mixing Machine Tender Cork Gasket Name Role Phone Julius Harper MD Primary Care Provider [phone] Grace Delgado MD Unavailable [phone] Allergies No known active allergies Medications [...] 03/26/2019 Assessment & Plan (09/17/2019 12:59 PM HOME CARE PHYSICAL THERAPIST): Due to the high risk of of [...] 10/04/2018 Assessment & Plan (09/17/2019 12:58 PM HOME CARE PHYSICAL THERAPIST): Will check TSH and free T4 Will [...] 10/30 Assessment & Plan (09/17/2019 1:01 PM HOME CARE PHYSICAL THERAPIST): Your Hba1c today was: Lab Results Component Value Date HGBA1C 10.4 09/17/2019 meaning a 3 month average sugar of : 260 Your goal hba1c is under 7.0 to prevent termite control representative diabetes complications ( eye , kidney and [...] discussed. Assessment & Plan (08/16/2017 12:26 PM HOME CARE PHYSICAL THERAPIST): Eye exam stable. Increase exercise as tolerated. [...] medications. Assessment & Plan (08/16/2017 12:25 PM HOME CARE PHYSICAL THERAPIST): Continue follow up and management per cardiology [...] Moser Assessment & Plan (08/16/2017 12:25 PM HOME CARE PHYSICAL THERAPIST): Will check lipids next OV. Assessment & [...] OV Assessment & Plan (08/16/2017 1:29 PM HOME CARE PHYSICAL THERAPIST): Clinically euthyroid. TSH at goal on current [...] on file Legal Sex Male 11:57 PM HOME CARE PHYSICAL THERAPIST Gender Identity Not on file Sexual Orientation Not on file Last Filed Vital Signs Vital Sign Reading Time Taken Comments Blood Pressure 90/62 09/17/2019 8:57 AM HOME CARE PHYSICAL THERAPIST Pulse 79 09/17/2019 8:57 AM HOME CARE PHYSICAL THERAPIST Temperature 36.7 C (98 F) 09/06/2016 2:37 PM HOME CARE PHYSICAL THERAPIST Respiratory Rate 14 09/17/2019 8:57 AM HOME CARE PHYSICAL THERAPIST Oxygen Saturation 97% 09/06/2016 2:37 PM HOME CARE PHYSICAL THERAPIST Inhaled Oxygen Concentration - - Weight 166.4 kg (366 lb 13.5 oz) 09/11/2024 9:01 AM HOME CARE PHYSICAL THERAPIST Height 195.6 cm (6' 5) 09/11/2024 9:01 AM HOME CARE PHYSICAL THERAPIST Body Mass Index 43.5 09/11/2024 9:01 AM HOME CARE PHYSICAL THERAPIST Plan of Treatment Not on file Procedures Procedure Name Priority Date/Time Associated Diagnosis Comments COMPREHENSIVE METABOLIC PANEL Routine 09/17/2019 10:12 AM HOME CARE PHYSICAL THERAPIST Type 1 diabetes mellitus with hyperglycemia (HCC) LIPID PANEL Routine 09/17/2019 10:12 AM HOME CARE PHYSICAL THERAPIST Type 1 diabetes mellitus with hyperglycemia (HCC) TSH Routine 09/17/2019 10:12 AM HOME CARE PHYSICAL THERAPIST Hypothyroidism, unspecified type POCT HEMOGLOBIN A1C Routine 09/17/2019 9 :10 AM HOME CARE PHYSICAL THERAPIST Type 1 diabetes mellitus with hyperglycemia (HCC) DIABETIC EYE EXAM Routine 11/11/2016 from Last 3 Months or Most Recently Relevant to Health Maintenance Results * (ABNORMAL) TSH (09/17/2019 10:12 AM HOME CARE PHYSICAL THERAPIST) TSH 8.390(H) 0.450 - 4.500 uIU/mL [facility] - 01 Blood specimen (specimen) 09/17/2019 10:12 AM HOME CARE PHYSICAL THERAPIST 09/17/2019 Narrative [facility] - 09/18/2019 8:13 AM HOME CARE PHYSICAL THERAPIST Performed at: - [facility] [id number] Meter Shop Supervisor: Willi Almeida PhD, Phone: [phone] Med Gaspar MD LAB BLOOD ORDERABLES Final Resul t Performing Organization Address [facility] Co de Phone Number [facility] - * (ABNORMAL) Lipid panel (09/17/2019 10:12 AM HOME CARE PHYSICAL THERAPIST) Cholesterol 340(H) 100 - 199 mg/dL [facility] [...] 2011;5:133-140 Blood specimen (specimen) 09/17/2019 10:12 AM HOME CARE PHYSICAL THERAPIST 09/17/2019 Narrative [facility] - 09/18/2019 8:13 AM HOME CARE PHYSICAL THERAPIST Performed at: - [facility] [id number] Meter Shop Supervisor: Willi Almeida PhD, Phone: [phone] us Med Gaspar MD LAB BLOOD ORDERABLES Final Resul t Performing Organization Address [facility] Co de Phone Number [facility] - * (ABNORMAL) Comprehensive metabolic panel (09/17/2019 10:12 AM HOME CARE PHYSICAL THERAPIST) Glucose 165(H) 65 - 99 mg/dL [facility] [...] 01 Blood specimen (specimen) 09/17/2019 10:12 AM HOME CARE PHYSICAL THERAPIST 09/17/2019 Narrative [facility] - 09/18/2019 8:13 AM HOME CARE PHYSICAL THERAPIST Performed at: - [facility] [address] [id number] Meter Shop Supervisor: Willi Almeida PhD, Phone: [phone] us Med Gaspar MD LAB BLOOD ORDERABLES Final Resul t [facility] - * POCT hemoglobin A1c (09/17/2019 9:10 AM HOME CARE PHYSICAL THERAPIST) Hemoglobin A1C, POC 10.4 Blood specimen (specimen) 09/17/2019 9:10 AM HOME CARE PHYSICAL THERAPIST Med Gaspar MD POINT OF CARE TEST ORDERABLES Fi nal Result * Diabetic Eye Exam (11/11/2016) Historical Provider HEALTH MAINTENANCE Edited Result - Final from Last 3 Months or Most Recently Relevant to Health Maintenance Insurance [employer] Care Teams Mixing Machine Tender Cork Gasket Relationship Specialty [place] [id number] [address] PCP - General 10/28/16 Grace Delgado MD [address] [facility] [address] [place] [address] Referring Physician Nephrology 09/11/24
--- OUTSIDE RECORDS SUMMARY | 2025-01-09 13:05 | XMS_ITS | Encounter Summary ---
Author Organization [facility] Address [address] [place] [address] Phone Care Team Providers Care Family Lawyer Name Role Phone Don Crowley Primary Care Provider [phone] Reason for Visit * Reason Comments Med Refill Encounter Details Date Type Department Care Team (Late st Contact Info) Description 03/28/2019 Refill [facility] Nephrology and Hypertension [address] [facility], [address] [place] [address] Grace Delgado MD [address] [facility], [address] [place] [address] Social History Tobacco Use Types Packs/Day Years Used Date Smoking Tobacco: Never Smokeless Tobacco: Never Alcohol Use Standard Drinks/Week Comments Yes 0 (1 standard drink = 0.6 oz pur e alcohol) Sex and Gender Information Value Date Recorded Sex Assigned at Not on file Legal Sex Male 8:55 AM [facility] Gender Identity Not on file Sexual Orientation Not on file documented as of this encounter Plan of Treatment Not on file documented as of this encounter Visit Diagnoses Not on filedocumented in this encounter Care Teams Family Lawyer Relationship Specialty Start Date End Date Don Crowley PA [address] [place] [address] PCP - General 03/16/22 documented as of this encounter
[2025-01-09 13:20] LABS: Basophils Absolute Auto 0.1 K/mm3 (0.0-0.1); Basophils Percent Auto 1.1 % (0.2-1.2); Eosinophils Absolute Auto 0.5 K/mm3 (0-0.3); Eosinophils Percent Auto 5.4 % (0-4.4); Hematocrit 35.4 % (42.0-52.0); Hemoglobin 11.4 g/dL (14.0-18.0); Immature Granulocyte Absolute 0.11 K/mm3 (0.00-0.031); Immature Granulocyte Percent A 1.3 % (0-0.5); Lymphocytes Absolute Auto 1.06 K/mm3 (0.9-3.2); Lymphocytes Percent Auto 12.6 % (18.3-44.2); Mean Corpuscular HGB Conc 32.2 g/dl (32-36); Mean Corpuscular Hemoglobin 27.9 pg (26-34); Mean Corpuscular Volume 86.8 fl (80-100); Mean Platelet Volume 8.8 fl (7.4-10.4); Monocytes Absolute Auto 0.7 K/mm3 (0.1-0.6); Monocytes Percent Auto 8.4 % (2.6-8.5); Neutrophils Percent Auto 71.2 % (45.5-73.1); Platelet Count Result 257 k/mm3 (150-375); Red Blood Count 4.08 M/mm3 (4.6-6.20); White Blood Count 8.4 K/mm3 (4.5-10.0)
[2025-01-09 13:30] LABS: Alanine Aminotransferase 16 U/L (6-50); Albumin Level 3.7 g/dL (3.5-5.1); Alkaline Phosphatase 75 U/L (38-126); Anion Gap 11 mmol/L (4-12); Aspartate Amino Transferase 25 U/L (17-59); Bilirubin,Total 0.4 mg/dL (0.2-1.3); Blood Urea Nitrogen 39 mg/dL (9-20); Calcium 8.8 mg/dL (8.4-10.2); Carbon Dioxide 31 mmol/L (22-30); Chloride 94 mmol/L (98-107); Estimated CRCL calculation 13 ml/min; Estimated Glomerular Filt Rate 5; Glucose 63 mg/dL (65-110); Lipase 35 U/L (23-300); Potassium 3.2 mmol/L (3.4-5.0); Sodium 136 mmol/L (137-145); Total Protein 7.2 g/dL (6.3-8.2)
--- OUTSIDE RECORDS SUMMARY | 2025-01-09 13:41 | XMS_ITS | Referral Summary ---
Author Organization [facility] Address [address] [place] [address] Care Team Providers Care Lease Operator Name Role Phone Julius Harper MD Primary Care Provider [phone] Grace Delgado MD Unavailable [phone] Allergies No known active allergies Medications [...] 03/26/2019 Assessment & Plan (09/17/2019 12:59 PM SEED TECHNICIAN): Due to the high risk of of [...] 10/04/2018 Assessment & Plan (09/17/2019 12:58 PM SEED TECHNICIAN): Will check TSH and free T4 Will [...] 10/30 Assessment & Plan (09/17/2019 1:01 PM SEED TECHNICIAN): Your Hba1c today was: Lab Results Component Value Date HGBA1C 10.4 09/17/2019 meaning a 3 month average sugar of : 260 Your goal hba1c is under 7.0 to prevent middle or intermediate school principal diabetes complications ( eye , kidney and [...] discussed. Assessment & Plan (08/16/2017 12:26 PM SEED TECHNICIAN): Eye exam stable. Increase exercise as tolerated. [...] medications. Assessment & Plan (08/16/2017 12:25 PM SEED TECHNICIAN): Continue follow up and management per cardiology [...] Moser Assessment & Plan (08/16/2017 12:25 PM SEED TECHNICIAN): Will check lipids next OV. Assessment & [...] OV Assessment & Plan (08/16/2017 1:29 PM SEED TECHNICIAN): Clinically euthyroid. TSH at goal on current [...] on file Legal Sex Male 11:57 PM SEED TECHNICIAN Gender Identity Not on file Sexual Orientation Not on file Last Filed Vital Signs Vital Sign Reading Time Taken Comments Blood Pressure 90/62 09/17/2019 8:57 AM SEED TECHNICIAN Pulse 79 09/17/2019 8:57 AM SEED TECHNICIAN Temperature 36.7 C (98 F) 09/06/2016 2:37 PM SEED TECHNICIAN Respiratory Rate 14 09/17/2019 8:57 AM SEED TECHNICIAN Oxygen Saturation 97% 09/06/2016 2:37 PM SEED TECHNICIAN Inhaled Oxygen Concentration - - Weight 166.4 kg (366 lb 13.5 oz) 09/11/2024 9:01 AM SEED TECHNICIAN Height 195.6 cm (6' 5) 09/11/2024 9:01 AM SEED TECHNICIAN Body Mass Index 43.5 09/11/2024 9:01 AM SEED TECHNICIAN Plan of Treatment Not on file Procedures Procedure Name Priority Date/Time Associated Diagnosis Comments COMPREHENSIVE METABOLIC PANEL Routine 09/17/2019 10:12 AM SEED TECHNICIAN Type 1 diabetes mellitus with hyperglycemia (HCC) LIPID PANEL Routine 09/17/2019 10:12 AM SEED TECHNICIAN Type 1 diabetes mellitus with hyperglycemia (HCC) TSH Routine 09/17/2019 10:12 AM SEED TECHNICIAN Hypothyroidism, unspecified type POCT HEMOGLOBIN A1C Routine 09/17/2019 9 :10 AM SEED TECHNICIAN Type 1 diabetes mellitus with hyperglycemia (HCC) DIABETIC EYE EXAM Routine 11/11/2016 from Last 3 Months or Most Recently Relevant to Health Maintenance Results * (ABNORMAL) TSH (09/17/2019 10:12 AM SEED TECHNICIAN) TSH 8.390(H) 0.450 - 4.500 uIU/mL [facility] - 01 Blood specimen (specimen) 09/17/2019 10:12 AM SEED TECHNICIAN 09/17/2019 Narrative [facility] - 09/18/2019 8:13 AM SEED TECHNICIAN Performed at: - [facility] [id number] [employer] Manager: Willi Almeida PhD, Phone: [phone] Med Gaspar MD LAB BLOOD ORDERABLES Final Resul t Performing Organization Address [facility] Co de Phone Number [facility] - * (ABNORMAL) Lipid panel (09/17/2019 10:12 AM SEED TECHNICIAN) Cholesterol 340(H) 100 - 199 mg/dL [facility] [...] 2011;5:133-140 Blood specimen (specimen) 09/17/2019 10:12 AM SEED TECHNICIAN 09/17/2019 Narrative [facility] - 09/18/2019 8:13 AM SEED TECHNICIAN Performed at: - [facility] [id number] [employer] Manager: Willi Almeida PhD, Phone: [phone] us Med Gaspar MD LAB BLOOD ORDERABLES Final Resul t Performing Organization Address [facility] Co de Phone Number [facility] - * (ABNORMAL) Comprehensive metabolic panel (09/17/2019 10:12 AM SEED TECHNICIAN) Glucose 165(H) 65 - 99 mg/dL [facility] [...] 01 Blood specimen (specimen) 09/17/2019 10:12 AM SEED TECHNICIAN 09/17/2019 Narrative [facility] - 09/18/2019 8:13 AM SEED TECHNICIAN Performed at: - [facility] [address] [id number] [employer] Manager: Willi Almeida PhD, Phone: [phone] us Med Gaspar MD LAB BLOOD ORDERABLES Final Resul t [facility] - * POCT hemoglobin A1c (09/17/2019 9:10 AM SEED TECHNICIAN) Hemoglobin A1C, POC 10.4 Blood specimen (specimen) 09/17/2019 9:10 AM SEED TECHNICIAN Med Gaspar MD POINT OF CARE TEST ORDERABLES Fi nal Result * Diabetic Eye Exam (11/11/2016) Historical Provider HEALTH MAINTENANCE Edited Result - Final from Last 3 Months or Most Recently Relevant to Health Maintenance Insurance [employer] Care Teams Lease Operator Relationship Specialty [place] [id number] [address] PCP - General 10/28/16 Grace Delgado MD [address] [facility] [address] [place] [address] Referring Physician Nephrology 09/11/24
--- OUTSIDE RECORDS SUMMARY | 2025-01-09 13:41 | XMS_ITS | Clinical Summary ---
Author Organization [facility] Address [address] [place] [address] Care Team Providers Care Auto Repair Technician Name Role Phone Julius Harper MD Primary Care Provider [phone] Grace Delgado MD Unavailable [phone] Allergies No known active allergies Medications [...] 03/26/2019 Assessment & Plan (09/17/2019 12:59 PM CURTAIN SUPERVISOR): Due to the high risk of [...] 10/04/2018 Assessment & Plan (09/17/2019 12:58 PM CURTAIN SUPERVISOR): Will check TSH and free T4 [...] 10/30 Assessment & Plan (09/17/2019 1:01 PM CURTAIN SUPERVISOR): Your Hba1c today was: Lab Results Component Value Date HGBA1C 10.4 09/17/2019 meaning a 3 month average sugar of : 260 Your goal hba1c is under 7.0 to prevent termite exterminator helper diabetes complications ( eye , kidney and [...] discussed. Assessment & Plan (08/16/2017 12:26 PM CURTAIN SUPERVISOR): Eye exam stable. Increase exercise as [...] medications. Assessment & Plan (08/16/2017 12:25 PM CURTAIN SUPERVISOR): Continue follow up and management per [...] Moser Assessment & Plan (08/16/2017 12:25 PM CURTAIN SUPERVISOR): Will check lipids next OV. Assessment [...] OV Assessment & Plan (08/16/2017 1:29 PM CURTAIN SUPERVISOR): Clinically euthyroid. TSH at goal on [...] on file Legal Sex Male 11:57 PM CURTAIN SUPERVISOR Gender Identity Not on file Sexual Orientation Not on file Obstetrics History Last Filed Vital Signs Vital Sign Reading Time Taken Comments Blood Pressure 90/62 09/17/2019 8:57 AM CURTAIN SUPERVISOR Pulse 79 09/17/2019 8:57 AM CURTAIN SUPERVISOR Temperature 36.7 C (98 F) 09/06/2016 2:37 PM CURTAIN SUPERVISOR Respiratory Rate 14 09/17/2019 8:57 AM CURTAIN SUPERVISOR Oxygen Saturation 97% 09/06/2016 2:37 PM CURTAIN SUPERVISOR Inhaled Oxygen Concentration - - Weight 166.4 kg (366 lb 13.5 oz) 09/11/2024 9:01 AM CURTAIN SUPERVISOR Height 195.6 cm (6' 5) 09/11/2024 9:01 AM CURTAIN SUPERVISOR Body Mass Index 43.5 09/11/2024 9:01 AM CURTAIN SUPERVISOR Plan of Treatment Health Maintenance Due [...] COMPREHENSIVE METABOLIC PANEL Routine 09/17/2019 10:12 AM CURTAIN SUPERVISOR Type 1 diabetes mellitus with hyperglycemia (HCC) LIPID PANEL Routine 09/17/2019 10:12 AM CURTAIN SUPERVISOR Type 1 diabetes mellitus with hyperglycemia (HCC) TSH Routine 09/17/2019 10:12 AM CURTAIN SUPERVISOR Hypothyroidism, unspecified type POCT HEMOGLOBIN A1C Routine 09/17/2019 9 :10 AM CURTAIN SUPERVISOR Type 1 diabetes mellitus with hyperglycemia (HCC) DIABETIC EYE EXAM Routine 11/11/2016 from Last 3 Months or Most Recently Relevant to Health Maintenance Results * (ABNORMAL) TSH (09/17/2019 10:12 AM CURTAIN SUPERVISOR) TSH 8.390(H) 0.450 - 4.500 uIU/mL [facility] - 01 Blood specimen (specimen) 09/17/2019 10:12 AM CURTAIN SUPERVISOR 09/17/2019 Narrative [facility] - 09/18/2019 8:13 AM CURTAIN SUPERVISOR Performed at: - [facility] [id number] P D Driver: Willi Almeida PhD, Phone: [phone] us Med Gaspar MD LAB BLOOD ORDERABLES Final Resul t Performing Organization Address [facility] Co de Phone Number [facility] - * (ABNORMAL) Lipid panel (09/17/2019 10:12 AM CURTAIN SUPERVISOR) Cholesterol 340(H) 100 - 199 mg/dL [...] 2011;5:133-140 Blood specimen (specimen) 09/17/2019 10:12 AM CURTAIN SUPERVISOR 09/17/2019 Narrative [facility] - 09/18/2019 8:13 AM CURTAIN SUPERVISOR Performed at: 01 - [facility] [id number] P D Driver: Willi Almeida PhD, Phone: [phone] Med Gaspar MD LAB BLOOD ORDERABLES Final Resul t Performing Organization Address [facility] Co de Phone Number [facility] - 01 * (ABNORMAL) Comprehensive metabolic panel (09/17/2019 10:12 AM CURTAIN SUPERVISOR) Glucose 165(H) 65 - 99 mg/dL [...] 01 Blood specimen (specimen) 09/17/2019 10:12 AM CURTAIN SUPERVISOR 09/17/2019 Narrative [facility] - 09/18/2019 8:13 AM CURTAIN SUPERVISOR Performed at: - [facility] [id number] P D Driver: Willi Almeida PhD, Phone: [phone] Med Gaspar MD LAB BLOOD ORDERABLES Final Resul t [facility] - 01 * POCT hemoglobin A1c (09/17/2019 9:10 AM CURTAIN SUPERVISOR) Hemoglobin A1C, POC 10.4 Blood specimen (specimen) 09/17/2019 9:10 AM CURTAIN SUPERVISOR Result [facility] Med Gaspar MD POINT OF CARE TEST ORDERABLES Fi nal Result * Diabetic Eye Exam (11/11/2016) Jeanine Phillips MD HEALTH MAINTENANCE Edited Result - Final from Last 3 Months or Most Recently Relevant to Health Maintenance Insurance [employer] Care Teams Auto Repair Technician Relationship Specialty [place] [id number] [address] PCP - General 10/28/16 Grace Delgado MD [address] [facility] [address] [place] [address] Referring Physician Nephrology 09/11/24
[2025-01-09] MEDS: ONDANSETRON INJ 4 MG/2 ML VIAL IV PUSH (13:43)
--- OUTSIDE RECORDS SUMMARY | 2025-01-09 13:43 | XMS_ITS | Encounter Summary ---
Author Organization [facility] Address [address] [place] [address] Phone Care Team Providers Care District Plant Engineer Name Role Phone Don Crolwey Primary Care Provider [phone] Reason for Visit * Reason Comments Med Refill Encounter Details Date Type Department Care Team (Late st Contact Info) Description 03/28/2019 Refill [facility] Nephrology and Hypertension [address] [facility], [address] [place] [address] Grace Delgado MD [address] [facility], [address] [place] [address] Social History Tobacco Use Types Packs/Day Years Used Date Smoking Tobacco: Never Smokeless Tobacco: Never Alcohol Use Standard Drinks/Week Comments Yes 0 (1 standard drink = 0.6 oz pur e alcohol) Sex and Gender Information Value Date Recorded Sex Assigned at Not on file Legal Sex Male 8:55 AM [facility] Gender Identity Not on file Sexual Orientation Not on file documented as of this encounter Plan of Treatment Not on file documented as of this encounter Visit Diagnoses Not on filedocumented in this encounter Care Teams District Plant Engineer Relationship Specialty Start Date End Date Don Crowley PA [address] [place] [address] PCP - General 03/16/22 documented as of this encounter
--- OUTSIDE RECORDS SUMMARY | 2025-01-09 13:43 | XMS_ITS | Encounter Summary ---
Author Organization [facility] Address [address] [place] [address] Phone Care Team Providers Care Therapy Tech Name Role Phone Don Crowley Primary Care Provider Reason for Visit * Reason Comments Med Refill Encounter Details Date Type Department Care Team (Late st Contact Info) Description 04/27/2019 Refill [facility] Nephrology and Hypertension [address] [facility], [address] [place] [address] Grace Delgado MD [address] [facility], [address] [place] [address] Social History Tobacco Use Types Packs/Day Years Used Date Smoking Tobacco: Never Smokeless Tobacco: Never Alcohol Use Standard Drinks/Week Comments Yes 0 (1 standard drink = 0.6 oz pur e alcohol) Sex and Gender Information Value Date Recorded Sex Assigned at Not on file Legal Sex Male 8:55 AM [facility] Gender Identity Not on file Sexual Orientation Not on file documented as of this encounter Plan of Treatment Not on file documented as of this encounter Visit Diagnoses Not on filedocumented in this encounter Care Teams Therapy Tech Relationship Specialty Start Date End Date Don Crowley PA [address] [place] [address] PCP - General 03/16/22 documented as of this encounter
--- OUTSIDE RECORDS SUMMARY | 2025-01-09 13:43 | XMS_ITS | Clinical Summary ---
Author Organization [facility] Address [address] [place] [address] Phone Care Team Providers Care Wood Calker Name Role Phone Don Crowley Primary Care Provider [phone] Allergies No known active allergies Medications insulin [...] 2025 09/12/19 17 Insurance [employer] Care Teams Wood Calker Relationship Specialty Start Date End Date Don Crowley PA [address] [place] [address] PCP - General 03/16/22
--- NOTE | 2025-01-09 14:18 | ED.ABDPAIN ---
HPI - Abdominal Pain General Chief Complaint: Abdominal Pain Stated Complaint: abd pain, back pain Time Seen by Provider: 01/09/25 12:44 Source: patient Mode of arrival: ambulatory Limitations: no limitations History of Present Illness HPI narrative: This is a 44-year-old male, with history of end-stage renal disease on peritoneal dialysis, who presents to the emergency department complaining of aching and intermittently sharp generalized and lower quadrant abdominal pain for the past 4 days. The patient denies any known aggravating or alleviating factors. He denies any known pattern to his pain exacerbations. He denies any recent change in medications or fluids trauma while performing home peritoneal dialysis. He has no other complaints at this time. Related Data Allergies Allergy/AdvReac Type Severity Reaction Status Date / Time No Known Allergies Allergy Verified 10/30/24 09:39 Review of Systems Review of Systems: All systems reviewed & are unremarkable except as noted in HPI and below PMFSH Past Medical History Medical History Proliferative diabetic retinopathy with history of surgery Diabetic retinopathy Dysthymic disorder Hypothyroidism Hypertension Hyperlipidemia CARLOS MANUEL (obstructive sleep apnea) CKD (chronic kidney disease) Diabetes Hypoglycemia associated with diabetes Surgical History Surgical History H/O partial thyroidectomy right H/O knee surgery Family History Family History Mother Patient's mother is in good health Father Patient's father is in good health Sibling Patient's sister is in good health Other Diabetes mellitus Family history of attention deficit hyperactivity disorder (ADHD) Family history of malignant neoplasm of thyroid Family history of thyroid disease Hypertension Social History Social History Smoking status: Never smoker Do You Feel Safe in your Home?: Yes Lack of Transportation: No Lack of Food: Never True Current Housing: I Have Housing Concerned About Future Housing: No Difficulty Paying Gas/Electric Bills: No Difficulty Paying for Meds: No Currently Unemployed: No Education: High School Diploma/GED Living arrangements: with family Occupation/Education: occupation Gender identity (if verbalized by the patient): Male Exam Narrative: GENERAL: Well-developed, well-nourished, and in no acute distress. HEAD: Normocephalic, atraumatic. EYES: PERRLA and EOMI. NECK: Supple. No carotid bruits or JVD CHEST: Clear to auscultation. No respiratory distress. No wheezes rales or rhonchi HEART: Regular rate and rhythm. No murmur heard. Normal peripheral pulses. ABDOMEN: Soft, diffuse mild tenderness to palpation, without rebound or guarding, nondistended, normal active bowel sounds. No CVA tenderness. There is a dialysis catheter noted in the left lower quadrant containing clear fluid. There is no noted erythema, induration or bleeding EXTREMITIES: Normal range of motion. No edema. SKIN: Warm, dry, no rash. NEURO: Alert and oriented x3. No focal deficit. Moving all 4 limbs spontaneously PSYCH: Normal mood and affect. Course Course Emergency Course: 15:50 - CBC demonstrates mild anemia with hemoglobin 11.4 but is otherwise unremarkable, including a normal white blood cell count of 8.4. Chemistries demonstrate creatinine elevation of 11.11 with BUN of 39, potassium of 3.2, calcium of 8.8 though a normal anion gap. I discussed the patient with transaction coordinator, Dr. Delgado who assisted with ordering fluid studies of peritoneal aspirate. Dialysis nursing staff was helpful in obtaining the sample. It demonstrates 4029 nucleated cells with 53% neutrophils, consistent with bacterial peritonitis. I discussed these findings with the patient and Dr. Delgado. Will treat with a 1st dose of IV vancomycin in size as edema. Considering the patient's hemodynamic stability, we will discharge with plan for intraperitoneal antibiotics beginning tomorrow at dialysis clinic. The patient is comfortable with this plan. Vital Signs Vital signs: Vital Signs Temperature 98.1 F 01/09/25 12:45 Pulse Rate 98 01/09/25 12:45 Respiratory Rate 16 01/09/25 12:45 Blood Pressure 139/99 H 01/09/25 12:45 Pulse Oximetry 97 01/09/25 12:45 Oxygen Delivery Room Air 01/09/25 12:45 Temperature 98.1 F 01/09/25 12:45 Pulse Rate 86 01/09/25 16:24 Respiratory Rate 20 01/09/25 16:24 Blood Pressure 147/87 H 01/09/25 16:24 Pulse Oximetry 96 01/09/25 16:24 Oxygen Delivery Room Air 06/12/25 12:45 MDM - Abdominal Pain MDM Narrative Medical decision making narrative: Plan: Labs, imaging, pain control, antiemetics, reassess Differential Diagnosis Differential diagnosis: Likely abdominal pain, acute appendicitis, calculus of kidney, pancreatitis, small bowel obstruction and other (Spontaneous bacterial peritonitis, pancreatitis, bowel perforation, diverticulitis, UTI, other) Lab Data 01/09/25 13:14 01/09/25 13:14 Labs: Lab Results 01/09/25 01/09/25 Range/Units 13:14 14:20 WBC 8.4 (4.5-10.0) K/mm3 RBC 4.08 L (4.6-6.20) M/mm3 Hgb 11.4 L (14.0-18.0) g/dL Hct 35.4 L (42.0-52.0) % MCV 86.8 (80-100) fl MCH 27.9 (26-34) pg MCHC 32.2 (32-36) g/dl RDW 14.0 (11.5-14.5) % Plt Count 257 (150-375) k/mm3 MPV 8.8 (7.4-10.4) fl Immature Gran % (Auto) 1.3 H (0-0.5) % Neut % (Auto) 71.2 (45.5-73.1) % Lymph % (Auto) 12.6 L (18.3-44.2) % Bremer % (Auto) 8.4 (2.6-8.5) % Eos % (Auto) 5.4 H (0-4.4) % Baso % (Auto) 1.1 (0.2-1.2) % Lymph # (Auto) 1.06 (0.9-3.2) K/mm3 Bremer # (Auto) 0.7 H (0.1-0.6) K/mm3 Eos # (Auto) 0.5 H (0-0.3) K/mm3 Baso # (Auto) 0.1 (0.0-0.1) K/mm3 Abs Immat Gran (auto) 0.11 H (0.00-0.031) K/mm3 Absolute Neuts (auto) 6.0 (1.3-6.7) K/mm3 Absolute Nucleated RBC 0.000 (0.0-0.012) K/mm3 Nucleated RBC % 0.0 (0.0-0.2) % Sodium 136 L (137-145) mmol/L Potassium 3.2 L (3.4-5.0) mmol/L Chloride 94 L (98-107) mmol/L Carbon Dioxide 31 H (22-30) mmol/L Anion Gap 11 (4-12) mmol/L BUN 39 H (9-20) mg/dL Creatinine 11.11 H (0.7-1.3) mg/dL Estim Creat Clear Calc 13 ml/min Estimated GFR 5 L (59 - ) Glucose 63 L (65-110) mg/dL Calcium 8.8 (8.4-10.2) mg/dL Total Bilirubin 0.4 (0.2-1.3) mg/dL AST 25 (17-59) U/L ALT 16 (6-50) U/L Alkaline Phosphatase 75 (38-126) U/L Total Protein 7.2 (6.3-8.2) g/dL Albumin 3.7 (3.5-5.1) g/dL Lipase 35 (23-300) U/L Peritoneal Source Peritoneal fluid Peritoneal Color Yellow (Colorless) Peritoneal Appearance Hazy A (Clear) Peritoneal RBC < 2000 (0-23658) /uL Periton Nuc Cells 4029 H (0-500) /uL Periton Neutrophils 53 H (0-25) % Periton Lymphocytes 36 % Peritoneal Monocytes 6 % Periton Mesothelial 1 % Periton Macrophages 4 % Imaging Data Radiologist's impression: ITS Impressions Abdomen/Pelvis CT 01/09/25 15:11 IMPRESSION: 1. Small amount of free fluid scattered throughout the abdomen and pelvis likely related to peritoneal dialysis with dialysis catheter coiled in the left hemipelvis. No other acute intra-abdominal/pelvic process. 2. Interval progression of now moderate bilateral renal cortical atrophy 3. Nonspecific mild splenomegaly which may be related to body habitus. Discharge Plan Discharge Clinical Impression: Abdominal pain, acute, Acute bacterial peritonitis Patient Disposition: Home Condition: Stable Instructions: Antibiotic Form, Peritonitis (ED) Additional Instructions: You were seen in the emergency department. Your labs showed changes consistent with an infection in the abdominal space. I discussed her case with your transaction coordinator, Dr. Amaral who recommends an initial dose of IV antibiotics and intraperitoneal antibiotics.. If you develop fevers with severe abdominal pain, persistent vomiting, or if you have other emergent concerns for life, limb, or eyesight, return to the emergency department. Patient Language: Finnish Prescriptions: No Action Baqsimi 3 mg/actuation spray,non-aerosol 3 mg intranasal ONCE PRN (Reason: hypoglycemia) Qty: 1 1RF Rx Instructions: as a single dose insulin degludec [Tresiba FlexTouch U-200] 200 unit/mL (3 mL) insulin pen 24 unit SUBCUT DAILY 90 Days Qty: 12 2RF Humalog KwikPen Insulin 200 unit/mL (3 mL) insulin pen See Rx Instructions SUBCUT USEASDIRECTD MDD 50 Qty: 24 1RF Rx Instructions: premeal: carbohydrate ratio of 10, correctin 1 for 40>150 (DME) pen needle, diabetic 32 gauge x 5/32 needle See Rx Instructions .ROUTE .MEDSUPPLY Qty: 400 1RF Rx Instructions: use four times daily rosuvastatin 20 mg tablet 20 mg PO DAILY Qty: 90 1RF nifedipine 90 mg tablet extended release See Rx Instructions .ROUTE .COMPLEX Qty: 180 1RF Dose Instruction: TAKE 1 TABLET BY MOUTH TWICE DAILY Rx Instructions: TAKE 1 TABLET BY MOUTH TWICE DAILY bumetanide 2 mg tablet See Rx Instructions .ROUTE .COMPLEX Qty: 60 12RF Dose Instruction: TAKE 1 TABLET BY MOUTH TWICE DAILY Rx Instructions: TAKE 1 TABLET BY MOUTH TWICE DAILY calcium acetate(phosphat bind) 667 mg capsule See Rx Instructions .ROUTE .COMPLEX Qty: 720 3RF Dose Instruction: TAKE 1 CAPSULE BY MOUTH THREE TIMES DAILY WITH MEALS Rx Instructions: Take 2 capsules with each meal (TIDWM) and 1 capsule with snacks twice a day (BID) (DME) Dexcom G7 Sensor Device See Rx Instructions .ROUTE .MEDSUPPLY Qty: 6 2RF Rx Instructions: As directed levothyroxine [Unithroid] 150 mcg tablet 150 mcg PO DAILY Qty: 90 1RF Zepbound 2.5 mg/0.5 mL pen injector 2.5 mg subcut WEEKLY Qty: 2 0RF Rx Instructions: for 4 weeks Follow-up/Referrals: Your dialysis clinic [Other] - 01/10/25 9:00 am Grace Delgado MD [Physician] - 01/10/25 9:00 am PHYSICIAN NOT ON STAFF,NONSTAFF [Primary Care Provider] -
--- NOTE | 2025-01-09 14:28 | PC.NURSE ---
RN consult note: Called to ED to collect peritoneal effluent sample. Sample is cloudy, yellow. Sample walked to lab. notified.
[2025-01-09 15:27] LABS: Appearance Peritoneal Fluid Hazy (Clear); Color Peritoneal Fluid Yellow (Colorless); Source Peritoneal Fluid Peritoneal Fluid
[2025-01-09 15:28] LABS: Lymphocytes Peritoneal Fluid 36 %; Macrophages Peritoneal Fluid 4 %; Mesothelial Cells Peritoneal Fluid 1 %; Monocytes Peritoneal Fluid 6 %; Neutrophils Peritoneal Fluid 53 % (0-25)
[2025-01-09 15:29] LABS: Nucleated Cells Peritoneal Flu 4029 /uL (0-500); RBC Peritoneal Fluid < 2000 /uL (0-10000)
[2025-01-09] MEDS: cefTAZidime 1 GM/NS 50 ML 1 GM/50 ML BAG IVPB (16:24)
[2025-01-09] MEDS: VANCOMYCIN 2,000 MG/NS 500 ML 2,000 MG/500 ML BAG 250 MG IVPB (17:10)
== END 2025-01-09 19:15 | disposition home or self-care (01) ==
PROVIDERS: Internal Medicine Nephrology; Emergency Provider Preventive Medicine Aerospace Medicine
DX: K65.9 Peritonitis, unspecified (principal); B96.89 Other specified bacterial agents as the cause of diseases classified elsewhere; E11.22 Type 2 diabetes mellitus with diabetic chronic kidney disease; I12.0 Hypertensive chronic kidney disease with stage 5 chronic kidney disease or end stage renal disease; N18.6 End stage renal disease; Z99.2 Dependence on renal dialysis; E11.3599 Type 2 diabetes mellitus with proliferative diabetic retinopathy without macular edema, unspecified eye; E78.5 Hyperlipidemia, unspecified; E89.0 Postprocedural hypothyroidism; G47.33 Obstructive sleep apnea (adult) (pediatric); F34.1 Dysthymic disorder; Z79.4 Long term (current) use of insulin; Z79.85 Long-term (current) use of injectable non-insulin antidiabetic drugs; Z79.899 Other long term (current) drug therapy
CPT/HCPCS: 36415; 74177; 80053; 83690; 85025; 87070; 87075; 87205; 89051; 96365; 96366; 96367; 96375; 99284; J0713; J2405; J3370; Q9967